=== PATIENT | female | born 1950 | race Caucasian/White ===

== ENCOUNTER 2020-10-01 10:53 | Outpatient (REF) | payer MEDICARE, SELFPAY ==
[2020-10-01 10:57] LABS: MANUAL DIFF FLAG NO
[2020-10-01 11:05] LABS: Basophils Percent Auto 0.6 % (0-2); Eosinophils Absolute Auto 0.2 X10*3/uL (0.0-0.4); Eosinophils Percent Auto 2.9 % (0-4); Hematocrit 40.1 % (37-47); Hemoglobin 12.9 g/dl (12.0-16.0); Imm Gran Abs Auto 0.01 X10*3/uL (0.00-0.03); Imm Gran Pct Auto 0.2 % (0.0-0.4); Mean Corpuscular HGB Conc 32.2 g/dl (31.0-35.0); Mean Corpuscular Hemoglobin 29.8 pg (27.0-33.0); Mean Corpuscular Volume 92.6 fL (80-98); Mean Platelet Volume 11.4 fL (9.4-12.3); Monocytes Absolute Auto 0.7 X10*3/uL (0.1-1.2); Neutrophils Absolute Auto 2.6 X10*3/uL (2.0-8.3); Neutrophils Percent Auto 47.3 % (45-73); Platelet Count 303 X10*3/uL (160-400); Red Blood Count 4.33 X10*6/uL (4.20-5.50); Red Cell Distribution Width 13.8 % (11.0-16.0); White Blood Count 5.4 X10*3/uL (4.8-10.8)
[2020-10-01 11:17] LABS: Alanine Aminotransferase 22 U/L (0-31); Alkaline Phosphatase 70 U/L (39-117); Anion Gap 11 (12-20); Aspartate Amino Transferase 24 U/L (5-31); Bilirubin Total 0.5 mg/dL (0.0-1.0); Blood Urea Nitrogen 8 mg/dL (9-16); Calcium 9.1 mg/dL (8.4-10.2); Carbon Dioxide 26 mmol/L (22-29); Chloride 104 mmol/L (96-108); Cholesterol 234 mg/dL; Estimated Glomerular Filt Rate > 60; Glucose Fasting 84 mg/dL (60-99); HDL Cholesterol 67 mg/dL; LDL Cholesterol Calculated 147 mg/dl; Potassium 4.2 mmol/L (3.3-5.1); Sodium 137 mmol/L (135-145); Total Protein 6.6 g/dL (6.5-8.0); Triglycerides 101 mg/dL
[2020-10-01 11:33] LABS: Glucose Urine UA NEG (NEG); Leukocyte Esterase Urine TRACE (NEG); Nitrite Urine NEG (NEG); Urine Blood NEG (NEG); Urine Ketones NEG (NEG); Urine Protein NEG (NEG-TRACE)
[2020-10-01 11:46] LABS: Appearance Urine CLEAR; Color Urine STRAW
[2020-10-01 12:04] LABS: RBC Urine 0 /HPF (0); Renal Epithelial Cells Urine TRACE /LPF; Squamous Epithelial Cell Urine TRACE /LPF; WBC Urine 0-2 /HPF (0-4)
== END 2020-10-01 10:54 | disposition home or self-care (01) ==
LOC: HO.LNP 10:53
PROVIDERS: Visit Provider Internal Medicine
DX: G35 Multiple sclerosis (principal); F34.1 Dysthymic disorder; M81.0 Age-related osteoporosis without current pathological fracture; I05.9 Rheumatic mitral valve disease, unspecified
CPT/HCPCS: 80053; 80061; 81001; 81003; 85025

== ENCOUNTER 2021-09-14 10:11 | Outpatient (REF) | payer MEDICARE, SELFPAY ==
--- NOTE | ~2021-09-14 | MR_ITS ---
MRI OF THE BRAIN WITHOUT IV CONTRAST INDICATION: Multiple sclerosis. White matter changes. COMPARISON: Brain MRI 11/24/2016. TECHNIQUE: Multiplanar multisequence MR imaging of the brain was obtained without IV contrast. FINDINGS: Stable appearing extensive T2 signal hyperintense lesional burden within the periventricular greater than subcortical white matter that remains most suggestive of the sequela of chronic demyelinating disease. There is global cerebral volume loss. Multiple chronic low T1 signal intensity lesions. There is no hydrocephalus, extra-axial surface collection, or herniation. The major flow voids at the skull base are preserved. There is no acute infarct on diffusion-weighted imaging. There is no intracranial hemorrhage on the gradient recalled echo acquisition. The midline structures are normal. The cerebellar tonsils are normally positioned. The cerebellum and brainstem are normal. The craniocervical junction is normal. Osseous marrow signal intensity is homogenous. The visualized soft tissues are unremarkable. MR/MR head/brain wo con IMPRESSION: Stable appearing extensive T2 signal hyperintense lesional burden within the periventricular greater than subcortical white matter that remains most suggestive of the sequela of chronic demyelinating disease. There is global cerebral volume loss.
== END 2021-09-14 10:12 | disposition home or self-care (01) ==
LOC: HO.MRI 10:11
PROVIDERS: Visit Provider Internal Medicine
DX: G35 Multiple sclerosis (principal); R90.82 White matter disease, unspecified
CPT/HCPCS: 70551

== ENCOUNTER 2021-10-06 11:09 | Outpatient (REF) | payer MEDICARE, SELFPAY ==
[2021-10-06 11:15] LABS: MANUAL DIFF FLAG NO
[2021-10-06 11:58] LABS: Basophils Percent Auto 0.5 % (0-2); Eosinophils Absolute Auto 0.2 X10*3/uL (0.0-0.4); Hematocrit 41.1 % (37.0-47.0); Hemoglobin 13.6 g/dl (12.0-16.0); Imm Gran Abs Auto 0.03 X10*3/uL (0.00-0.03); Imm Gran Pct Auto 0.5 % (0.0-0.4); Lymphocytes Absolute Auto 2.3 X10*3/uL (1.2-4.9); Lymphocytes Percent Auto 40.1 % (20-40); Mean Corpuscular HGB Conc 33.1 g/dl (31.0-35.0); Mean Corpuscular Hemoglobin 30.5 pg (27.0-33.0); Mean Corpuscular Volume 92.2 fL (80.0-98.0); Mean Platelet Volume 11.5 fL (9.4-12.3); Monocytes Absolute Auto 0.6 X10*3/uL (0.1-1.2); Monocytes Percent Auto 11.2 % (2-11); Neutrophils Absolute Auto 2.6 x10*3/uL (2.0-8.3); Neutrophils Percent Auto 44.7 % (45-73); Platelet Count 296 X10*3/uL (160-400); Red Blood Count 4.46 X10*6/uL (4.20-5.50); Red Cell Distribution Width 13.9 % (11.0-16.0); White Blood Count 5.7 X10*3/uL (4.8-10.8)
[2021-10-06 12:26] LABS: Appearance Urine Clear; Color Urine Yellow; Glucose Urine UA Negative (Negative); Leukocyte Esterase Urine Negative (Negative); Nitrite Urine Negative (Negative); PH 7.5 (5.0-8.0); Urine Blood Negative (Negative); Urine Ketones Negative (Negative); Urine Protein Negative (Neg-Trace)
[2021-10-06 12:27] LABS: Alanine Aminotransferase 17 U/L (0-31); Albumin Level 4.1 g/dL (3.5-5.0); Alkaline Phosphatase 69 U/L (39-117); Anion Gap 14 (12-20); Aspartate Amino Transferase 22 U/L (5-31); Bilirubin Total 0.3 mg/dL (0.0-1.0); Blood Urea Nitrogen 11 mg/dL (9-16); Carbon Dioxide 27 mmol/L (22-29); Chloride 103 mmol/L (96-108); Cholesterol 235 mg/dL; Estimated Glomerular Filt Rate > 60; Glucose Random 79 mg/dL (60-115); HDL Cholesterol 75 mg/dL; LDL Cholesterol Calculated 143 mg/dl; Potassium 4.4 mmol/L (3.3-5.1); Sodium 140 mmol/L (135-145); Total Protein 6.9 g/dL (6.5-8.0); Triglycerides 89 mg/dL
[2021-10-06 12:30] LABS: Bacteria Urine None Seen (None Seen); Hyaline Casts Urine 0-2 /LPF (0-2); RBC Urine 0-2 /HPF (0-2); Squamous Epithelial Cell Urine 0-2 /HPF (0-2); WBC Urine 0-5 /HPF (0-5)
== END 2021-10-06 11:10 | disposition home or self-care (01) ==
LOC: HO.LNP 11:09
PROVIDERS: Visit Provider Internal Medicine
DX: Z13.89 Encounter for screening for other disorder (principal)
CPT/HCPCS: 80053; 80061; 81001; 85025

== ENCOUNTER 2022-10-09 10:45 | Outpatient (REF) | payer MEDICARE, SELFPAY ==
[2022-10-09 10:49] LABS: MANUAL DIFF FLAG NO
[2022-10-09 10:54] LABS: Basophils Percent Auto 0.8 % (0-2); Eosinophils Absolute Auto 0.1 X10*3/uL (0.0-0.4); Eosinophils Percent Auto 2.6 % (0-4); Hematocrit 40.7 % (37.0-47.0); Hemoglobin 13.3 g/dl (12.0-16.0); Imm Gran Abs Auto 0.02 X10*3/uL (0.00-0.03); Imm Gran Pct Auto 0.4 % (0.0-0.4); Lymphocytes Absolute Auto 1.8 X10*3/uL (1.2-4.9); Lymphocytes Percent Auto 35.2 % (20-40); Mean Corpuscular HGB Conc 32.7 g/dl (31.0-35.0); Mean Corpuscular Hemoglobin 30.3 pg (27.0-33.0); Mean Corpuscular Volume 92.7 fL (80.0-98.0); Mean Platelet Volume 11.4 fL (9.4-12.3); Monocytes Absolute Auto 0.5 X10*3/uL (0.1-1.2); Monocytes Percent Auto 9.9 % (2-11); Neutrophils Absolute Auto 2.6 x10*3/uL (2.0-8.3); Neutrophils Percent Auto 51.1 % (45-73); Platelet Count 309 X10*3/uL (160-400); Red Blood Count 4.39 X10*6/uL (4.20-5.50); Red Cell Distribution Width 14.1 % (11.0-16.0); White Blood Count 5.1 X10*3/uL (4.8-10.8)
[2022-10-09 11:11] LABS: Alanine Aminotransferase 17 U/L (0-31); Alkaline Phosphatase 70 U/L (39-117); Anion Gap 12 (12-20); Aspartate Amino Transferase 22 U/L (5-31); Bilirubin Total 0.4 mg/dL (0.0-1.0); Blood Urea Nitrogen 9 mg/dL (9-16); Calcium 9.3 mg/dL (8.4-10.2); Carbon Dioxide 25 mmol/L (22-29); Chloride 105 mmol/L (96-108); Cholesterol 227 mg/dL (<200); Estimated Glomerular Filt Rate > 60; Glucose Fasting 82 mg/dL (60-99); HDL Cholesterol 74 mg/dL (>40); LDL Cholesterol Calculated 136 mg/dL (<100); Potassium 4.5 mmol/L (3.3-5.1); Sodium 137 mmol/L (135-145); Total Protein 6.8 g/dL (6.5-8.0); Triglycerides 89 mg/dL (<150)
== END 2022-10-09 10:46 | disposition home or self-care (01) ==
LOC: HO.LNP 10:45
PROVIDERS: Visit Provider Internal Medicine
DX: G35 Multiple sclerosis (principal)
CPT/HCPCS: 80053; 80061; 85025

== ENCOUNTER 2022-10-16 13:00 | Outpatient (REF) | payer MEDICARE, SELFPAY ==
[2022-10-16 15:49] LABS: Appearance Urine Clear; Color Urine Yellow; Glucose Urine UA Negative (Negative); Leukocyte Esterase Urine Negative (Negative); Nitrite Urine Negative (Negative); Urine Blood Negative (Negative); Urine Ketones Negative (Negative); Urine Protein Negative (Neg-Trace)
[2022-10-16 15:54] LABS: Bacteria Urine 2+ (None Seen); Hyaline Casts Urine 0-2 /LPF (0-2); RBC Urine 0-2 /HPF (0-2); Squamous Epithelial Cell Urine 0-2 /HPF (0-2); WBC Urine 0-5 /HPF (0-5)
== END 2022-10-16 13:01 | disposition home or self-care (01) ==
LOC: HO.LNP 13:00
PROVIDERS: Visit Provider Internal Medicine
DX: Z00.00 Encounter for general adult medical examination without abnormal findings (principal); M81.0 Age-related osteoporosis without current pathological fracture; I05.9 Rheumatic mitral valve disease, unspecified
CPT/HCPCS: 81001

== ENCOUNTER 2022-11-02 13:29 | Outpatient (AMB) | payer MEDICARE, SELFPAY ==
--- NOTE | 2022-11-02 13:32 | A.OFFVIS_ITS ---
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 She does not have any known cardiac issues. No history of any coronary artery disease or myocardial infarction or cardiomyopathy or in fact any other cardiac concerns the past. She states that randomly she may feel short of breath. She describes for example, a random sensation of having to take a deep breath while eating extra. However, when I questioned her about exertion shortness of breath, she does not seem to have much of those symptoms. Any case, because of underlying multiple sclerosis she does not do much at baseline either. She states she c annot walk too much because of this. Otherwise, no clear anginal-type chest pains. Blood pressure is slightly high today but she states that might be from white coat and generally slower than that. Not diabetic. Nonsmoker. [facility] Medical History (Updated 11/02/22 @ 13:59 by Amaury Lopez MD) Multiple sclerosis Surgical History (Updated 11/02/22 @ 13:40 by Rebekah Castillo) Hx of tonsillectomy Family History (Updated 11/02/22 @ 13:41 by Rebekah Castillo) Mother CHF (congestive heart failure) Father No problems noted. Social History (Updated 11/02/22 @ 13:41 by Rebekah Castillo) Alcohol intake: never Patient Tobacco Use Status: Never used Tobacco Review of Systems Const Denies weakness Eyes Denies loss of vision ENT Denies dizziness Card Denies chest pain, Denies chest pain with activity, Denies syncope, Denies rapid heart rate, Denies pedal edema, Denies edema, Denies leg edema, Denies lightheadedness, Denies palpitations, Denies dyspnea, Denies dyspnea on exertion and Denies orthopnea Resp Denies cough, Denies dyspnea, Denies dyspnea on exertion and Denies wheezing GI Denies hematochezia and Denies change in stool character Denies hematuria, Denies urinary frequency and Denies dysuria Musc Denies abnormal gait, Denies muscle cramps, Denies muscle weakness, Denies numbness, Denies radiating pain into limb and Denies tingling Skin/Breast Denies nail changes and Denies rash Neuro Denies Abnormal speech present, Denies abnormal gait, Denies dizziness, Denies syncope, Denies loss of vision, Denies memory loss, Denies numbness, Denies tingling and Denies weakness Psych Denies depression and Denies memory loss Endo Denies palpitations Aller/Immun Denies wheezing Physical Exam Vital Signs: Last Vital Signs Pulse 88 11/02/22 13:35 BP 144/60 H 11/02/22 13:35 BMI result Body Mass Index 28.7 Const General: comfortable and no acute distress Orientation/consciousness: patient oriented x3 HEENT Other: Unremarkable Head: Yes normal to inspection Neck Neck: Yes normal visual inspection Chest Chest palpation & inspection: normal inspection of the chest Resp Auscultation: clear to auscultation bilaterally Cardio Palpation: normal PMI Heart sounds: S1 normal heart sound present, S2 normal heart sound present, no gallops, no murmurs and no rubs GI Palpation (GI): Soft to palpation Back/Spine/Pelvis Other: unremarkable Skin General skin exam: no rashes or lesions noted Neuro General: patient oriented x3 Speech: No Abnormal speech present Extrem General: Yes normal to inspection Psych Mental Status: mental status grossly normal Office Procedures EKG Details: EKG with sinus rhythm at 88/Min; possible left atrial enlargement; nonspecific ST-T changes, somewhat diffusely. [id number], Complete Assessment & Plan Assessment & Plan (1) SOB (shortness of breath): Code(s): R06.02 - Shortness of breath (2) Abnormal EKG: Code(s): R94.31 - Abnormal electrocardiogram [ECG] [EKG] Plan Symptoms are somewhat atypical for cardiac disease. EKG however has some diffuse nonspecific ST-T changes. We will start with an echocardiogram and stress test. Highly unlikely to exercise on the treadmill and hence we can do a pharmacological stress test with Lexiscan. Once these are completed and reviewed, can do follow-up. Blood pressure is slightly high but she states generally slower than that. We need to follow-up on future readings. Discussed with who came for appointment. Orders: Orders CA lexiscan stress w alex Today R06.02 - Shortness of breath NM cardiolite stress test Today R06.02 - Shortness of breath CA echo transthoracic complete Today I25.10 - Atherosclerotic heart disease of [place] coronary artery without angina pectoris, R06.02 - Shortness of breath Coding Level of Care Code New Pt Level 4 (27053) Diagnoses SOB (shortness of breath) R06.02 Abnormal EKG R94.31 CPT Codes EKG - CPT: 07112-[id number], Complete ([id number])
[2022-11-02 13:35] VITALS: BP 144/60; PULSE 88; BMI 28.7
== END 2022-11-02 13:54 | disposition home or self-care (01) ==
PROVIDERS: PCP Internal Medicine; Referring Provider Internal Medicine; Visit Provider Internal Medicine
DX: R06.02 Shortness of breath (principal); R94.31 Abnormal electrocardiogram [ECG] [EKG]
CPT/HCPCS: 93010; 99204

== ENCOUNTER → 2022-11-02 13:29 | Outpatient (BNVA) | payer MEDICARE, SELFPAY | PROVIDERS: PCP Internal Medicine; Referring Provider Internal Medicine; Visit Provider Internal Medicine | DX: R06.02 Shortness of breath (principal); R94.31 Abnormal electrocardiogram [ECG] [EKG] | CPT/HCPCS: 93005; 99202 ==

== ENCOUNTER → 2022-11-06 11:01 | Outpatient (REF) | payer MEDICARE, SELFPAY ==
--- NOTE | 2022-11-06 11:09 | HM_ITS ---
* Total procedure length 30 days. Wear time 19.5 days. * Underlying rhythm is sinus. Average ventricular rate 82/Min. Range 58 to 156/Min. * No evidence of atrial fibrillation. * Very rare supraventricular ectopy. * Shortness of breath, palpitations, racing/fast heartbeat, correlates with sinus rhythm, mild sinus tachycardia. MTDD
== END ==
LOC: HO.CARD 11:01
PROVIDERS: PCP Internal Medicine; Visit Provider Internal Medicine
DX: R00.2 Palpitations (principal)
CPT/HCPCS: 93270

== ENCOUNTER 2023-10-12 10:42 | Outpatient (REF) | payer MEDICARE, SELFPAY ==
[2023-10-12 10:46] LABS: MANUAL DIFF FLAG NO
[2023-10-12 11:26] LABS: Appearance Urine Clear; Basophils Absolute Auto 0.1 X10*3/uL (0.0-0.2); Basophils Percent Auto 0.9 % (0-2); Color Urine Yellow; Eosinophils Absolute Auto 0.2 X10*3/uL (0.0-0.4); Eosinophils Percent Auto 3.2 % (0-4); Glucose Urine UA Negative (Negative); Hematocrit 39.8 % (37.0-47.0); Hemoglobin 13.3 g/dl (12.0-16.0); Imm Gran Abs Auto 0.02 X10*3/uL (0.00-0.03); Imm Gran Pct Auto 0.4 % (0.0-0.4); Leukocyte Esterase Urine Trace (Negative); Lymphocytes Percent Auto 35.9 % (20-40); Mean Corpuscular HGB Conc 33.4 g/dl (31.0-35.0); Mean Corpuscular Hemoglobin 30.4 pg (27.0-33.0); Mean Corpuscular Volume 90.9 fL (80.0-98.0); Mean Platelet Volume 11.2 fL (9.4-12.3); Monocytes Absolute Auto 0.6 X10*3/uL (0.1-1.2); Monocytes Percent Auto 11.4 % (2-11); Neutrophils Absolute Auto 2.7 x10*3/uL (2.0-8.3); Neutrophils Percent Auto 48.2 % (45-73); Nitrite Urine Negative (Negative); Platelet Count 307 X10*3/uL (160-400); Red Blood Count 4.38 X10*6/uL (4.20-5.50); Red Cell Distribution Width 14.7 % (11.0-16.0); Specific Gravity - Urine 1.015 (1.005-1.025); UMIC TRIGGER UACC YES; Urine Blood Negative (Negative); Urine Ketones Negative (Negative); Urine Protein Negative (Neg-Trace); White Blood Count 5.6 X10*3/uL (4.8-10.8)
[2023-10-12 11:28] LABS: Bacteria Urine None Seen (None Seen); Hyaline Casts Urine 0-2 /LPF (0-2); RBC Urine 0-2 /HPF (0-2); Squamous Epithelial Cell Urine 0-2 /HPF (0-2); WBC Urine 0-5 /HPF (0-5)
[2023-10-12 11:43] LABS: Alanine Aminotransferase 18 U/L (0-31); Albumin Level 3.9 g/dL (3.5-5.0); Alkaline Phosphatase 73 U/L (39-117); Anion Gap 12 (12-20); Aspartate Amino Transferase 22 U/L (5-31); Bilirubin Total 0.5 mg/dL (0.0-1.0); Blood Urea Nitrogen 8 mg/dL (9-16); Calcium 9.4 mg/dL (8.4-10.2); Carbon Dioxide 27 mmol/L (22-29); Chloride 105 mmol/L (96-108); Cholesterol 237 mg/dL (<200); Estimated Glomerular Filt Rate > 60; Glucose Fasting 81 mg/dL (60-99); HDL Cholesterol 72 mg/dL (>40); LDL Cholesterol Calculated 147 mg/dL (<100); Potassium 4.3 mmol/L (3.3-5.1); Sodium 140 mmol/L (135-145); Total Protein 6.7 g/dL (6.5-8.0); Triglycerides 91 mg/dL (<150)
== END 2023-10-12 10:43 | disposition home or self-care (01) ==
LOC: HO.LNP 10:42
PROVIDERS: Visit Provider Internal Medicine
DX: G35 Multiple sclerosis (principal)
CPT/HCPCS: 80053; 80061; 81001; 85025

== ENCOUNTER 2024-04-23 11:22 | Outpatient (REF) | payer MEDICARE, SELFPAY ==
--- NOTE | ~2024-04-23 | MR_ITS ---
EXAMINATION: MR BRAIN WITHOUT CONTRAST CLINICAL INFORMATION: Multiple sclerosis. COMPARISON: September 14, 2021. TECHNIQUE: MRI of the brain was obtained using routine sequences without contrast. FINDINGS: There are multifocal, irregular shaped, perpendicularly oriented to the corpus callosum, different sizes, hypointense T1 hyperintense T2 FLAIR nonprotected effusion deep periventricular white matter signal abnormality involving mostly centrum semiovale and ann radiata, the largest in the right parietal and left frontal region. The majority of these lesions demonstrated a black hole pattern . There are few hyperintense T2 FLAIR signal in the left midbrain. No acute intracranial hemorrhage, mass effect, midline shift, hydrocephalus or herniation. Prominence of the extra-axial CSF spaces cerebral sulci and ventricles. Flow-void signal within the main vessels is normal. Sellar/suprasellar region demonstrated no gross signal abnormality. Craniocervical junction is intact and normal. There is volume loss of the corpus callosum. MR/MR head/brain wo con IMPRESSION: Severe demyelinating plaques involving mostly the supratentorial compartment. Global cerebral atrophy. No acute stroke/nonhemorrhagic ischemia. Electronically signed by: J Luis Murillo MD 04/25/2024 11:58 AM EST
--- OUTSIDE RECORDS SUMMARY | 2024-04-23 13:49 | XMS_ITS | Patient Health Record ---
Author Organization Storm Gonzalez MD Address [address] [place], [place] [phone] Care Team Providers Care Counseling Program Leader Name Role Phone Storm Gonzalez Primary Care Provider Allergies No Known Allergies Results Component Value Reference Range Notes Complete Blood Count Auto Di ff Reviewed date:10/12/2023 12:13:43 PM Interpretation: Performing Lab:[facility], [address] [place] [phone] Notes/Report: White Blood Count 5.6 4.8-10.8 X10*3/uL Red Blood Count 4.38 4.20-5.50 X10*6/uL Hemoglobin 13.3 12.0-16.0 g/dl Hematocrit 39.8 37.0-47.0 % Mean Corpuscular Volume 90.9 80.0-98.0 fL Mean Corpuscular Hemoglobin 30.4 27.0-33.0 pg Mean Corpuscular HGB Conc 33.4 31.0-35.0 g/dl Red Cell Distribution Width 14.7 11.0-16.0 % Platelet Count 307 160-400 X10*3/uL Mean Platelet Volume 11.2 9.4-12.3 fL Neutrophils Percent Auto 48.2 45-73 % Imm Gran Pct Auto 0.4 0.0-0.4 % Lymphocytes Percent Auto 35.9 20-40 % Monocytes Percent Auto 11.4 2-11 % Eosinophils Percent Auto 3.2 0-4 % Basophils Percent Auto 0.9 0-2 % NRBC Pct Auto 0.0 0.0-0.2 /100WBC Neutrophils Absolute Auto 2.7 2.0-8.3 x10*3/u L Imm Gran Abs Auto 0.02 0.00-0.03 X10*3/uL Lymphocytes Absolute Auto 2.0 1.2-4.9 X10*3/u L Monocytes Absolute Auto 0.6 0.1-1.2 X10*3/uL Eosinophils Absolute Auto 0.2 0.0-0.4 X10*3/u L Basophils Absolute Auto 0.1 0.0-0.2 X10*3/uL NRBC Abs Auto 0.000 0.0-0.012 X10*3/uL Comprehensive [place]. Panel Fa st Reviewed date:10/12/2023 12:38:01 PM Interpretation: Performing Lab:[address] [phone] Notes/Report: Sodium 140 135-145 mmol/L Potassium 4.3 3.3-5.1 mmol/L Chloride 105 96-108 mmol/L Carbon Dioxide 27 22-29 mmol/L Anion Gap 12 12-20 Blood Urea Nitrogen 8 9-16 mg/dL Creatinine 0.72 0.5-1.4 mg/dL Estimated Glomerular Filt Rate > 60 NOTE: For -[place]aur[place] individuals, multiply the result by 1.210. Chronic Kidney Disease: Estimated GFR < 60 mL/min/1.73m2 Severe Kidney Disease: Estimated GFR < 15 mL/min/1.73m2 Glucose Fasting 81 60-99 mg/dL Calcium 9.4 8.4-10.2 mg/dL Bilirubin Total 0.5 0.0-1.0 mg/dL Aspartate Amino Transferase 22 5-31 U/L Alanine Aminotransferase 18 0-31 U/L Total Protein 6.7 6.5-8.0 g/dL Albumin Level 3.9 3.5-5.0 g/dL Alkaline Phosphatase 73 39-117 U/L Lipid Panel Reviewed date:10/12/2023 12:10:00 PM Interpretation: Performing Lab:[address] [phone] Notes/Report: Triglycerides 91 <150 mg/dL Desirable Triglyceride: less than 150 mg/dL Borderline High Triglyceride 150-199 mg/dL High Triglyceride: 200-499 mg/dL Very High Triglyceride: greater than or equal to 5OO mg/dL Cholesterol 237 <200 mg/dL Desirable Cholesterol: less than 200 mg/dL Borderline High Cholesterol: 200-239 mg/dL High Cholesterol: greater than 239 mg/dL LDL Cholesterol Calculated 147 <100 mg/dL Desirable LDL: less than 100 mg/dL Near Optimal/Above Optimal LDL: 110-129 mg/dL Borderline High LDL: 130-159 mg/dL High LDL: 160-189 mg/dL Very High LDL: greater than or equal to 190 mg/dL HDL Cholesterol 72 >40 mg/dL Desirable HDL: greater than 40 mg/dL Note: This HDL assay may give artificially low results in patients with liver disease. UA ClnCatch+Micro w/rflx Cul t Reviewed date:10/12/2023 12:37:44 PM Interpretation: Performing Lab:[facility], [address] [place] [phone] Notes/Report: Urine, Clean Catch Color Urine Yellow Appearance Urine Clear PH 7.0 5.0-9.0 Glucose Urine UA Negative Negative mg/dL Urine Blood Negative Negative Specific [place] - Urine 1.015 1.005-1.025 Urine Protein Negative Neg-Trace mg/dL Urine Ketones Negative Negative mg/dL Nitrite Urine Negative Negative Leukocyte Esterase Urine Trace Negative RBC Urine 0-2 0-2 /HPF WBC Urine 0-5 0-5 /HPF Squamous Epithelial Cell Urine 0-2 0-2 /HPF Bacteria Urine None Seen None Seen Hyaline Casts Urine 0-2 0-2 /LPF Reason For Referral No Information Medications Medication SIG (Take, Route, Frequency, Duration) [...] 4 HOURS NEEDED FOR 30 DAYS Active Immunizations Vaccine Route Administration Date Status Comme nts Flu Vaccine Unknown 10/03/2010 Administered Tetanus Unknown 02/14/2007 Administered Flu Vaccine IM Intramuscular 11/30/2011 Administered Flu Vaccine IM Intramuscular 12/03/2012 Administered Flu Vaccine IM Intramuscular 12/22/2013 Administered Fluarix Quadrivalent IM Intramuscular 12/08/2014 Administe red Shingles IM Intramuscular 03/11/2015 Administered Fluarix Quadrivalent IM Intramuscular 12/30/2015 Administe red PPSV23 (Pnemovax) IM Intramuscular 07/06/2016 Administered Fluarix Quadrivalent IM Intramuscular 10/30/2016 Administe red Prevnar 13 IM Intramuscular 07/12/2017 Administered Influenza High Dose IM Intramuscular 12/14/2017 Administer ed Influenza High Dose IM Intramuscular 12/19/2018 Administer ed Influenza High Dose IM Intramuscular 10/31/2019 Administer ed SARS-COV-2 Pfizer Unknown 04/20/2020 Administered SARS-COV-2 Pfizer Unknown 05/16/2020 Administered Influenza High Dose IM Intramuscular 12/16/2020 Administer ed SARS-COV-2 Pfizer Unknown 11/25/2020 Administered Fluarix Quadrivalent Unknown 12/02/2021 Administered Influenza High Dose IM Intramuscular 10/27/2022 Administer ed SARS-COV-2 Pfizer Unknown 11/17/2022 Administered SARS-COV-2 Pfizer Unknown 11/03/20[address] [facility] [facility] Influenza High Dose Unknown 11/03/2023 [facility] Social History Tobacco Use: Social History Observation Description Date Details (start date - stop date) Never Smoker NA - NA Tobacco Use/Smoking Question Answer Notes Patient is a nonsmoker Additional Findings: Tobacco Non-User Cu rrent non-smoker, currently using no form of tobacco Alcohol Screen Question Answer Notes Did you have a drink containing alcohol in the p ast year? 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) Active confirmed Problem 48919688 Osteoporosis (M81.0) Active confirmed Problem 77451169 Dysthymia (F34.1) Active confirmed Problem 035584566 Ankle arthritis (M19.079) Active confirmed Problem 401274434 Mild intermitten t asthmatic bronchitis with acute exacerbation (J45.21) Active confirmed Problem 352902546 Family history o f MS (multiple sclerosis) (Z82.0) Active confirmed Problem 044155032 Multiple sclerosis, primary progressive (G35) Active confirmed Vital Signs Blood pressure diastolic 58 mm Hg 04/15/2024 Height 63 in 04/15/2024 Blood pressure systolic 124 mm Hg 04/15/2024 Weight 154 lbs 04/15/2024 BMI 27.28 kg/m2 04/15/2024 Encounters Encounter Location Date Provider Diagnosis Storm Gonzalez MD [address] [place], [place] [phone] 10/12/2023 Storm Gonzalez Multiple sclerosis, primary progressive G35 Storm Gonzalez MD [address] [place] [phone] 10/18/2023 Storm Gonzalez Multiple sclerosis, primary progressive G35 ; Palpitation R00.2 ; Mild intermittent asthmatic bronchitis with acute exacerbation J45.21 and Family history of MS (multiple sclerosis) Z82.0 Storm Gonzalez MD [address] [place] [phone] 04/15/2024 Storm Gonzalez Multiple sclerosis, primary progressive G35 Assessments Encounter Date Diagnosis (ICD Code) Assessment Notes Treatment Notes Treatment Clinical Notes Section Notes 10/12/2023 Multiple sclerosis, primary progressive (ICD-10 - G35) 10/18/2023 Multiple sclerosis, primary progressive (ICD-10 - G35) still not wanting to take any meds 10/18/2023 Palpitation (ICD-10 - R00.2) had holter that was negative 04/15/2024 Multiple sclerosis, primary progressive (ICD-10 - G35) ms is doing okay. is going to get repeat mri in april. feels that she is pretty much the same. 10/18/2023 Mild intermittent asthmatic bronchitis with acute exacerbation (ICD-10 - J45.21) to use inhaler if necessary 10/18/2023 Family history of MS (multiple sclerosis) (ICD-10 - Z82.0) will cntinue to monitor Plan Of Treatment Pending Test Test Name Order Date Electrocardiogram (EKG) 07/12/2017 Electrocardiogram (EKG) 06/22/2015 Electrocardiogram (EKG) 07/19/2018 Electrocardiogram (EKG) 07/06/2016 BUN 11/21/2016 CREATININE 11/21/2016 BONE DENSITY DEXA 10/08/2020 ECG 30 day event monitor 06/29/2022 FL barium swallow modified 10/16/2022 Future Test Test Name Order Date BONE DENSITY DEXA 01/26/2020 MAMMOGRAM DIGITAL BILATERAL SCREEN 01/25 Next Appt Details Provider Name:Storm long, 10/14/2024 07:45:00 AM, [address], [address], [place], [place], [phone], Provider Name:Storm johnsonr, 10/21/2024 02:30:00 PM, [address], [address], [place], [place], [phone], Insurance Providers Payer Name Payer Address Payer Phone Subscriber Number Group Number Insured Name Patient Relationship to Insured Coverage Start Date Coverage End Date [employer] [address] [place] [address] [id number] Dana Murphy Self - patient is the insured [facility] AND [facility] [address] [place], [place] [id number] Jeffrey Dana Self - patient is the insured Medical (General) History Medical History History ICD Code colonoscopy 2007 due in 10; colonoscopy done by w/Dr. Davis on 01/18/18 - no further testing indicated per Dr. Davis discussed the need for the n ew shingrix is going to wait for the new covd vaccine
--- OUTSIDE RECORDS SUMMARY | 2024-04-23 13:50 | XMS_ITS ---
Author Organization Storm Gonzalez MD Address [address] [place] [phone] Care Team Providers Care Painter Tumbling Barrel Name Role Phone Storm Gonzalez Primary Care Provider Allergies No Known Allergies REASON FOR VISIT review labs Medications Medication SIG (Take, Route, Frequency, Duration) Notes Start Date End Date Status FLUoxetine HCl 20 MG take 1 capsule by m outh every day in the morning Orally Once a day for 90 days Active Ventolin HFA 108 (90 Base) MCG/ACT INHALE 1 PUFF INTO THE LUNGS EVERY 4 HOURS NEEDED FOR 30 DAYS Active Ibuprofen 800 MG 1 tablet with food o r milk Orally Two times a day for 30 days 10/30/2016 Not-Taking Social History Tobacco Use: Social History Observation [...] ast year? No Points 0 Interpretation Negative Vital Signs Blood pressure systolic 132 mm Hg 10/18/19 24 Blood pressure diastolic 54 mm Hg 024 Height 63 in 10/18/2023 Weight 153 lbs 10/18/2023 BMI 27.10 kg/m2 10/18/2023 Encounters Encounter Location Date Provider Diagnosis Storm Gonzalez MD [address] [place] [phone] 10/18/2023 Storm Gonzalez Multiple sclerosis, primary progressive G35 ; Palpitation R00.2 ; Mild intermittent asthmatic bronchitis with acute exacerbation J45.21 and Family history of MS (multiple sclerosis) Z82.0 Assessments Encounter Date Diagnosis (ICD Code) Assessment Notes Treatment Notes Treatment Clinical Notes Section Notes 10/18/2023 Multiple sclerosis, primary progressive (ICD-10 - G35) still not wanting to take any meds 10/18/2023 Palpitation (ICD-10 - R00.2) had holter that was negative 10/18/2023 Mild intermittent asthmatic bronchitis with acute exacerbation (ICD-10 - J45.21) to use inhaler if necessary 10/18/2023 Family history of MS (multiple sclerosis) (ICD-10 - Z82.0) will cntinue to monitor Plan Of Treatment Medication Medication Name Sig Start Date Stop Date Notes Ventolin HFA 108 (90 Base) MCG/ACT INHALE 1 PUFF INTO THE LUNGS EVERY 4 HOURS NEEDED FOR 30 DAYS Treatment Notes Assessment Notes Multiple sclerosis, primary progressive still not wanting to take any meds Palpitation had holter that was negative Mild intermittent asthmatic bronchitis with acute exacerbation to use inhaler if necessary Family history of MS (multiple sclerosis ) will cntinue to monitor Next Appt Details Follow Up: 6 Months, Reason: Provider Name:Storm long, 10/14/2024 07:45:00 AM, [address] [place] [address], [address] [place] [address], [phone], Provider Name:Storm long, 10/21/2024 02:30:00 PM, [address] [place] [address], [address] [place] [address], [phone], Progress Notes * Dana MURPHY ADOB: 0 (73 yo F)Acc No.[id number]:10/18/2023 Patient:?Dana Murphy A Provider:?Storm Gonzalez MD :1950???Age:73 Y???Sex:Female D ate:10/18/2023 Address:[address] [place], [place] [id number] Subjective: * Chief Complaints: * ???Review labs * HPI: ???Depression Screening:?PHQ-9?Little interest or pleasure in doing things?Several days,?Feeling down, depressed, or hopeless?Several days,?Trouble falling or staying asleep, or sleeping too much?Several days,?Feeling tired or having little energy?Several days,?Poor appetite or overeating?Not at all,?Feeling bad about yourself or that you are a failure, or have let yourself or your family down?Not at all,?Trouble concentrating on things, such as reading the newspaper or watching television?Not at all,?Moving or speaking so slowly that other people could have noticed; or the opposite, being so fidgety or restless that you have been moving around a lot more than usual?Not at all,?Thoughts that you would be better off or of hurting yourself in some way?Not at all,?Total Score?4,?Interpretation?Minimal Depression.?Interpretation and Intervention?Depression Screening Findings?Negative,?Follow-Up for Depression?: review of PHQ-9 found negative result, no follow-up needed.?Communication Needs:?Communication Needs?Does the patient have a hearing impairment?No,?Does the patient have a vision impairment??Yes,?If yes, what is the vision impairment??Glasses,?Does the patient have a cognition impairment??No.?Fall Risk:?History?Have you had any falls with injury in the past year??No,?Have you had two or more falls in the past year??No.?SDOH Questions:?SDOH Questions?In the past year have you or any family members you live with been unable to get any of the following when it was really needed? Check all that apply:?None.?Symptom(s):? patient is a 73 yo female here for visit with review of recent labs and follow up of chronic issues. * ROS:?General/Constitutional:?Patient denies?chills , fatigue , fever , headache.?ENT:?Patient denies?decreased sense of smell , any loss of taste , sore throat.?Respiratory:?Patient denies?shortness of breath with exertion shortness of breath at rest.?Cardiovascular:?Patient denies?chest pain at rest chest pain with exertion.?Genitourinary:?Patient denies?difficulty urinating.?Musculoskeletal:?Patient denies?muscle aches.?Peripheral Vascular:?Patient denies?red and blue toes.? * Medical History:? * Surgical History:? * Hospitalization/Major Diagno stic Procedure:? * Family History:?Father: dece ased 90 yrs.?Mother: 76 yrs.?1 brother(s) , 2 sister(s) . 1 daughter(s) . .? Mother-MS Father-Organ Failure, Denies mental health/substance abuse family history, Denies mental health/substance abuse family history, No pertinent family medical history, No pertinent family medical history, Denies mental health/substance abuse family history. * Social History:?Tobacco Use:?Tobacco Use/Smoking?Patient is a?nonsmoker,?Additional Findings: Tobacco Non-User?Current non-smoker, currently using no form of tobacco.?Drugs/Alcohol:?Alcohol Screen?Did you have a drink containing alcohol in the past year??No,?Points?0,?Interpretation?Negative.?Miscellaneous:?Caffeine: yes, frequency:, 1-2 cups per day. Children: yes. no Community involvements. no Exercise, not really doing much since the MS diagnosis. Home smoke detector use: yes. Housing: owning. Living with: spouse. Marital status: . Occupation: Retired. Pets: none. no Travel outside of the [place]. * Medications:?TakingFLUoxetin e HCl 20 MG Capsule take 1 capsule by mouth every day in the morning Orally Once a dayVentolin HFA 108 (90 Base) MCG/ACT Aerosol Solution INHALE 1 PUFF INTO THE LUNGS EVERY 4 HOURS NEEDED FOR 30 DAYS Taking FLUoxetine HCl 20 MG Capsule take 1 capsule by mouth every day in the morning Orally Once a dayTaking Ventolin HFA 108 (90 Base) MCG/ACT Aerosol Solution INHALE 1 PUFF INTO THE LUNGS EVERY 4 HOURS NEEDED FOR 30 DAYS Not-Taking/PRNIbuprofen 800 MG Tablet 1 tablet with food or milk Orally Two times a dayMedication List reviewed and reconciled with the patientNot-Taking/PRN Ibuprofen 800 MG Tablet 1 tablet with food or milk Orally Two times a dayMedication List reviewed and reconciled with the patient * Allergies:?N.K.D.A.yes[Aller gies Verified] Objective: * Vitals:?Ht: 63, Wt:153, BMI: 27.10, BP:132/54. * ???Past Orders: ???Lab:Complete Blood Count Auto Diff (Order Date - 10/12/2023) (Collection Date - 10/12/2023) ? Value Reference Range ?White Blood Count 5.6 4. 8-10.8 - X10*3/uL ?Red Blood Count 4.38 4.20 -5.50 - X10*6/uL ?Hemoglobin 13.3 12.0-16.0 - g/dl ?Hematocrit 39.8 37.0-47.0 - % ?Mean Corpuscular Volume 90.9 80.0-98.0 - fL ?Mean Corpuscular Hemoglobin 30.4 27.0-33.0 - pg ?Mean Corpuscular HGB Conc 33.4 31.0-35.0 - g/dl ?Red Cell Distribution Width 14.7 11.0-16.0 - % ?Platelet Count 307 160-4 00 - X10*3/uL ?Mean Platelet Volume 11.2 9.4-12.3 - fL ?Neutrophils Percent Auto 48.2 45-73 - % ?Imm Gran Pct Auto 0.4 0. 0-0.4 - % ?Lymphocytes Percent Auto 35.9 20-40 - % ?Monocytes Percent Auto 11.4 H 2-11 - % ?Eosinophils Percent Auto 3.2 0-4 - % ?Basophils Percent Auto 0.9 0-2 - % ?NRBC Pct Auto 0.0 0.0-0. 2 - /100WBC ?Neutrophils Absolute Auto 2.7 2.0-8.3 - x10*3/uL ?Imm Gran Abs Auto 0.02 0. 00-0.03 - X10*3/uL ?Lymphocytes Absolute Auto 2.0 1.2-4.9 - X10*3/uL ?Monocytes Absolute Auto 0.6 0.1-1.2 - X10*3/uL ?Eosinophils Absolute Auto 0.2 0.0-0.4 - X10*3/uL ?Basophils Absolute Auto 0.1 0.0-0.2 - X10*3/uL ?NRBC Abs Auto 0.000 0.0-0. 012 - X10*3/uL ???Lab:Comprehensive [place]. P issac Fast (Order Date - 10/12/2023) (Collection Date - 10/12/2023) ? Value Reference Range ?Sodium 140 135-145 - mmo l/L ?Bilirubin Total 0.5 0.0- 1.0 - mg/dL ?Aspartate Amino Transferase 22 5-31 - U/L ?Alanine Aminotransferase 18 0-31 - U/L ?Total Protein 6.7 6.5-8. 0 - g/dL ?Albumin Level 3.9 3.5-5. 0 - g/dL ?Alkaline Phosphatase 73 39-117 - U/L ?Potassium 4.3 3.3-5.1 - mmol/L ?Chloride 105 96-108 - mm ol/L ?Carbon Dioxide 27 22-29 - mmol/L ?Anion Gap 12 12-20 - ?Blood Urea Nitrogen 8 L 9-16 - mg/dL ?Creatinine 0.72 0.5-1.4 - mg/dL ?Estimated Glomerular Filt Rate > 60 - ?Glucose Fasting 81 60-9 9 - mg/dL ?Calcium 9.4 8.4-10.2 - m g/dL ???Lab:Lipid Panel (Order Da te - 10/12/2023) (Collection Date - 10/12/2023) ? Value Reference Range ?Triglycerides 91 <150 - mg/dL ?Cholesterol 237 H <200 - m g/dL ?LDL Cholesterol Calculated 147 H <100 - mg/dL ?HDL Cholesterol 72 >40 - mg/dL ???Lab:UA ClnCatch+Micro w/r flx Cult (Order Date - 10/12/2023) (Collection Date - 10/12/2023) ? Value Reference Range ?Color Urine Yellow - ?Appearance Urine Clear - ?PH 7.0 5.0-9.0 - ?Glucose Urine UA Negative Neg ative - mg/dL ?Urine Blood Negative Negative - ?Specific [place] - Urine 1.015 1.005-1.025 - ?Urine Protein Negative Neg-Tr erika - mg/dL ?Urine Ketones Negative Negati ve - mg/dL ?Nitrite Urine Negative Negati ve - ?Leukocyte Esterase Urine Trace A Negative - ?RBC Urine 0-2 0-2 - /HPF ?WBC Urine 0-5 0-5 - /HPF ?Squamous Epithelial Cell Urine 0-2 0-2 - /HPF ?Bacteria Urine None Seen None Seen - ?Hyaline Casts Urine 0-2 0-2 - /LPF * Examination: ???General Examination: ?GENERAL APPEARANCE:? alert, well hydrated, in no distress , female.?HEAD:? normocephalic.?EYES:? BOTH EYES, normal.?EARS:? BOTH EARS, normal.?THROAT:? no erythema, no exudate, pharynx normal.?NECK/THYROID:? no carotid bruit.?LYMPH NODES:? no cervical adenopathy.?SKIN:? good turgor.?HEART:? regular rate and rhythm, no murmurs, rubs, gallops.?LUNGS:? no wheezes, rales, rhonchi, good air movement, clear to auscultation bilaterally.?BREASTS:? no masses palpable bilaterally.?ABDOMEN:? no hepatosplenomegaly, soft, nontender, nondistended.?RECTAL EXAM:? stool guaiac negative, no masses palpable.?FEMALE GENITOURINARY:? non-palpable ovaries.?EXTREMITIES:? no edema.? Assessment: * Assessment: 1.?Multiple sclerosis, prima ry progressive - G35 (Primary)?2.?Palpitation - R00.2?3.?Mild intermittent asthmatic bronchitis with acute exacerbation - J45.21?4.?Family history of MS (multiple sclerosis) - Z82.0? Plan: * Treatment: 2.?Palpitation? Notes: had holter that was negative.?? 3.?Mild intermittent asthmat ic bronchitis with acute exacerbation? Continue Ventolin HFA Aerosol Solution, 108 (90 Base) MCG/ACT, INHALE 1 PUFF INTO THE LUNGS EVERY 4 HOURS NEEDED FOR 30 DAYS.?? Notes: to use inhaler if necessary.?? 4.?Family history of MS (mul tiple sclerosis)? Notes: will cntinue to monitor.?? * Procedure Codes:? * Preventive Medicine:? ??Counseling:?Care goal follow-up plan:?Counseling for abnormal BMI provided?Yes,?Above Normal BMI Follow-up?Giving encouragement to exercise.? * Follow Up:?6 Months * * Sign off status: Completed true * Provider:?Storm Gonzalez MD Date:?0 10/18/2023 Generated for Nelson moura/Dane/Grabiel on:?04/23/2024 01:49 PM EST History and Physical Notes * HPI (History of Present Illness) Category Sub-Category Detail Notes Category Not es Symptom(s) patient is a 73 yo female here for visit with review of recent labs and follow up of chronic issues. Depression Screening PHQ-9 Little inte rest or pleasure in doing things: Several days Feeling down, depressed, or hopeless: Se veral days Trouble falling or staying asleep, or sl eeping too much: Several days Feeling tired or having little energy: S everal days Poor appetite or overeating: Not at all Feeling bad about yourself o r that you are a failure, or have let yourself or your family down: Not at all Trouble concentrating on thi ngs, such as reading the newspaper or watching television: Not at all Moving or speaking so slowly that other people could have noticed; or the opposite, being so fidgety or restless that you have been moving around a lot more than usual: Not at all Thoughts that you would be b marilia off or of hurting yourself in some way: Not at all Total Score: 4 Interpretation: Minimal Depression Interpretation and Intervention Depression Leonel gould Findings: Negative Follow-Up for Depression: : review of PH Q-9 found negative result, no follow-up needed SDOH Questions SDOH Questions In the past year have you or any family members you live with been unable to get any of the following when it was really needed? Check all that apply:: None Fall Risk History Have you had any falls with injury in the past year?: No Have you had two or more falls in the year?: No Communication Needs Communication Needs Does the patient have a hearing impairment: No Does the patient have a vision impairmen t?: Yes ?If yes, what is the vision impairment?: Glasses Does the patient have a cognition impair ment?: No Examination Category Sub-Category Detail Notes Category Not es General Examination GENERAL APPEARANCE: alert, w ell hydrated, in no distress , female HEAD: normocephalic EYES: BOTH EYES, normal EARS: BOTH EARS, normal THROAT: no erythema, no exud ate, pharynx normal NECK/THYROID: no carotid bruit HEART: regular rate and rhy thm, no murmurs, rubs, gallops LUNGS: no wheezes, rales, r honchi, good air movement, clear to auscultation bilaterally ABDOMEN: no hepatosplenomegal y, soft, nontender, nondistended SKIN: good turgor EXTREMITIES: no edema BREASTS: no masses palpable b ilaterally LYMPH NODES: no cervical adenopat hy RECTAL EXAM: stool guaiac negativ e, no masses palpable FEMALE GENITOURINARY: non-palpable ovari es
--- OUTSIDE RECORDS SUMMARY | 2024-04-23 13:50 | XMS_ITS ---
Author Organization Storm Gonzalez MD Address [address] [place] [phone] Care Team Providers Care Registered Nurse Bone Marrow Transplant Name Role Phone Storm Gonzalez Primary Care [...] Date Provider Diagnosis Storm Gonzalez MD [address] [place] [phone] 04/15/2024 Storm Gonzalez Multiple sclerosis, primary progressive [...] Next Appt Details Provider Name:Storm Rojas ier, 10/14/2024 07:45:00 AM, [address], [address], [place], [place], [phone], Provider Name:Storm Rojas ier, 10/21/2024 02:30:00 PM, [address], [address], [place], [place], [phone], Progress Notes * MELINDADana WEBSTER ADOB: 0 (73 yo F)Acc No.[id number]:04/15/2024 Progress Notes Patient:?MELINDA Dana Adry Provider:?Storm Gonzalez MD :1950???Age:73 Y???Sex:Female D ate:04/15/2024 Address:[address] [place], [place] [id number] Subjective: * Chief Complaints: * ???6 month * HPI: ???Symptom(s):?patient is a 73 yo female here for 6 moth foloow up visit, never heard wheezing. * ROS:?General/Constitutional:?Denies?Chills.?Denies?Fatigue.?Denies?Fever.?Denies?Headache.?ENT:?Patient denies?decreased sense of smell, any loss of taste, sore throat.?Denies?Sore throat.?Respiratory:?Denies?Cough.?Admits?Shortness of breath at rest.?Denies?Shortness of breath with exertion.?Gastrointestinal:?Denies?Diarrhea.?Denies?Nausea.?Musculoskeletal:?Patient denies?muscle aches.?Peripheral Vascular:?Patient denies?red and blue toes.? * Medical History:? * Surgical History:? * Hospitalization/Major Diagno stic Procedure:? * Medications:?TakingVentolin HFA 108 (90 Base) MCG/ACT Aerosol Solution [...] Allergies:?N.K.D.A.yes[Aller gies Verified] Objective: * Vitals:?Ht: 63, Wt: 154, BMI :27.28, BP:124/58, Wt-k.85. * Examination: ???General Examination: ?GENERAL APPEARANCE:?alert, well hydrated, in no distress.?HEAD:?normocephalic.?SKIN:?good turgor.?HEART:?no murmurs, rubs, gallops, regular rate and rhythm.?LUNGS:?no wheezes, rales, rhonchi, good air movement, clear to auscultation bilaterally.? Assessment: * Assessment: 1.?Multiple sclerosis, prima ry progressive - G35 (Primary)??? Plan: * Treatment: * Procedure Codes:? * * Sign off status: Completed true * Provider:?Storm Gonzaelz MD Date:?0 04/15/2024 Generated for Nelson moura/Dane/eTnoemi on:?04/23/2024 01:49 PM EST History and Physical [...]
--- OUTSIDE RECORDS SUMMARY | 2024-04-23 13:50 | XMS_ITS ---
Author Organization Storm Gonzalez MD Address [address] [place], [place] [id number] Care Team Providers Care Haulage Engine Operator Name Role Phone Storm Gonzalez Primary Care Provider [phone] Results Component Value Reference Range Notes Complete Blood Count Auto Di ff Reviewed date:10/12/2023 12:13:43 PM Interpretation: Performing Lab:[facility], [address] [place] [phone] Notes/Report: White Blood Count 5.6 4.8-10.8 X10*3/uL [...] NRBC Abs Auto 0.000 0.0-0.012 X10*3/uL Comprehensive [place]. Panel Fa st Reviewed date:10/12/2023 12:38:01 PM Interpretation: Performing Lab:[address] [phone] Notes/Report: Sodium 140 135-145 mmol/L Potassium 4.3 3.3-5.1 mmol/L Chloride 105 96-108 mmol/L Carbon Dioxide 27 22-29 mmol/L Anion Gap 12 12-20 Blood Urea Nitrogen 8 9-16 mg/dL Creatinine 0.72 0.5-1.4 mg/dL Estimated Glomerular Filt Rate > 60 NOTE: For -Greek individuals, multiply the result by 1.210. Chronic [...] Panel Reviewed date:10/12/2023 12:10:00 PM Interpretation: Performing Lab:[address] [phone] Notes/Report: Triglycerides 91 <150 mg/dL Desirable Triglyceride: [...] t Reviewed date:10/12/2023 12:37:44 PM Interpretation: Performing Lab:[facility], [address] [place] [phone] Notes/Report: Urine, Clean Catch Color Urine Yellow Appearance Urine Clear PH 7.0 5.0-9.0 Glucose Urine UA Negative Negative mg/dL Urine Blood Negative Negative Specific [place] - Urine 1.015 1.005-1.025 Urine Protein Negative Neg-Trace mg/dL Urine Ketones Negative Negative mg/dL Nitrite Urine Negative Negative Leukocyte Esterase Urine Trace Negative RBC Urine 0-2 0-2 /HPF WBC Urine 0-5 0-5 /HPF Squamous Epithelial Cell Urine 0-2 0-2 /HPF Bacteria Urine None Seen None Seen Hyaline Casts Urine 0-2 0-2 /LPF REASON FOR VISIT FASTING LABS Encounters Encounter Location Date Provider Diagnosis Storm Gonzalez MD [address] [place] [address] [place] [phone] 10/12/2023 Storm Gonzalez Multiple sclerosis, primary progressive G35 Assessments Encounter Date Diagnosis (ICD Code) Assessment Notes Treatment Notes Treatment Clinical Notes Section Notes 10/12/2023 Multiple sclerosis, primary progressive (ICD-10 - G35) Plan Of Treatment Next Appt Details Provider Name:Storm long, 10/14/2024 07:45:00 AM, [address] [place] [address], [address], [phone], Provider Name:Storm long, 10/21/2024 02:30:00 PM, [address] [place] [address], [address], [phone], Progress Notes * Dana MURPHY ADOB: 0 (73 yo F)Acc No.[id number]:10/12/2023 Progress Note Patient:?Dana MURPHY Provider:?Storm Gonzalez MD :1950???Age:73 Y???Sex:Female D ate:10/12/2023 Address:[address] [place] [address], [id number] Subjective: * Chief Complaints: * ???1. FASTING LABS. * Medical History:? Objective: * Vitals:? Assessment: * Assessment: 1.?Multiple sclerosis, prima ry progressive - G35 (Primary)??? Plan: * Treatment: * Procedure Codes:?72708 VENIP UNCT, ROUTINE* * * The named appointment provid er may or may not be the originator of this progress note, and it is not deemed complete until electronically signed by the appointment provider. Sign off status: Pending * Provider:?Storm Gonzalez MD Date:?0 10/12/2023 Generated for Nelson moura/Dane/eTtobismitting on:?04/23/2024 01:49 PM EST
== END 2024-04-23 11:23 | disposition home or self-care (01) ==
LOC: HO.MRI 11:22
PROVIDERS: PCP Internal Medicine; Visit Provider Internal Medicine
DX: G35 Multiple sclerosis (principal)
CPT/HCPCS: 70551

== ENCOUNTER → 2024-04-23 11:37 | Outpatient (BNV) | payer MEDICARE, SELFPAY | PROVIDERS: PCP Internal Medicine; Visit Provider Radiology Diagnostic Radiology | DX: G31.89 Other specified degenerative diseases of nervous system (principal); G37.9 Demyelinating disease of central nervous system, unspecified | CPT/HCPCS: 70551 ==

== ENCOUNTER 2024-09-05 12:02 | Outpatient (REF) | payer MEDICARE, SELFPAY ==
--- NOTE | ~2024-09-05 | US_ITS ---
EXAMINATION: US TRIPLEX UPPER EXTREMITY, RIGHT CLINICAL INFORMATION: Phlebitis COMPARISON: None available. TECHNIQUE: Color-flow triplex imaging with spectral analysis and compression Doppler was performed on the right upper extremity. FINDINGS: The right internal jugular, subclavian, and axillary veins are patent and free of thrombus. The imaged segment of the right brachiocephalic vein is patent. Spectral doppler waveforms are normal. The brachial, basilic, cephalic, radial, and ulnar veins are patent and compressible. Imaging performed in the area of the patient's localized pain demonstrates no mass, fluid collection, or other abnormality. US/US venous duplex UE RT IMPRESSION: No evidence of deep venous thrombosis involving the right upper extremity. Electronically signed by: Jorge Luis Toney MD 09/05/2024 12:58 PM EDT
--- OUTSIDE RECORDS SUMMARY | 2024-09-05 12:08 | XMS_ITS | Patient Health Record ---
Author Organization [facility] Address [address] [place] [phone] Care Team Providers Care Bottle Packing Machine Cleaner Name Role Phone Storm Gonzalez MD Primary Care Provider Bridger Kumar Unavailable [phone] Reason For Referral No Information Medications Medication SIG (Take, Route, Frequency, Duration) Notes Start Date End Date Status Antacid Active Calcium Active Probiotic Active Multivitamin Active Fluoxetine 10 once a day Activ e Social History Tobacco Use: Social History Observation Description Date Details (start date - stop date) Never Smoker NA - NA Tobacco Use/Smoking Question Answer Notes Patient is a nonsmoker Alcohol Screen Question Answer Notes Did you have a drink contain ing alcohol in the past year? Yes How often did you have a dri nk containing alcohol in the past year? Monthly or less (1 point) How many drinks did you have on a typical day when you were drinking in the past year? 1 or 2 drinks (0 point) How often did you have 6 or more drinks on one occasion in the past year? Never (0 point) Points 1 Interpretation Negative Section Notes: Nonsmoker; no sig. alcohol Problems Problem Type SNOMED Code ICD Code Onset Dates Problem Status W/U Status Risk Notes Problem 632864379 Encounter for screening for malignant neoplasm of colon (Z12.11) Active confirmed Problem 906266804859747 Pre-procedural examination (Z01.818) Active confirmed Plan Of Treatment Future Test Test Name Order Date COLONOSCOPY 12/14/2017 Insurance Providers Payer Name Payer Address Payer Phone Subscriber Number Group Number Insured Name Patient Relationship to Insured Coverage Start Date Coverage End Date MEDICARE OF [place] [address] [place] [address] [id number] DANIELA LAWRENCE Self - patient is the insured [employer] CLAIMS [address] [place] [address] [id number] DANIELA LAWRENCE Self - patient is the insured Medical (General) History Medical History History ICD Code Denies SD,DM,CVA,Lung disease,renal dise ase Multiple sclerosis Neg. colonoscopy in 07/2007 Depression Surgical History Surgery Date(Month/Year) Tonsillectomy
--- OUTSIDE RECORDS SUMMARY | 2024-09-05 12:08 | XMS_ITS | Clinical Summary ---
Author Organization [facility] Address [address] [place] [address] Phone Care Team Providers Care Tobacco Drummer Name Role Phone Unavailable Primary Care Provider Unavailabl e Social History Tobacco Use Types Packs/Day Years Used Date Smoking Tobacco: Never Assessed Comments Unknown Sex and Gender Information Value Date Recorded Sex Assigned at Not on file Legal Sex Female 8:35 AM EDT Gender Identity Not on file Sexual Orientation Not on file Plan of Treatment Not on file Medical Devices Not on file Additional Source Comments The information contained in this document represents components of the legal health record. It is not the complete legal health record.[facility]
--- OUTSIDE RECORDS SUMMARY | 2024-09-05 12:08 | XMS_ITS | Patient Health Record ---
Author Organization Storm Gonzalez MD Address [address] [place], [place] [phone] Care Team Providers Care Executive Vice President And Chief Financial Officer Name Role Phone Storm Gonzalez Primary Care Provider Allergies No Known Allergies Results Component Value Reference Range Notes Complete Blood Count Auto Di ff Reviewed date:10/12/2023 12:13:43 PM Interpretation: Performing Lab:[facility], [address] [place] [phone] Notes/Report: White Blood Count 5.6 4.8-10.8 X10*3/uL [...] NRBC Abs Auto 0.000 0.0-0.012 X10*3/uL Comprehensive [place]. Panel Fa st Reviewed date:10/12/2023 12:38:01 PM Interpretation: Performing Lab:[address] [address] Notes/Report: Sodium 140 135-145 mmol/L Potassium 4.3 3.3-5.1 mmol/L Chloride 105 96-108 mmol/L Carbon Dioxide 27 22-29 mmol/L Anion Gap 12 12-20 Blood Urea Nitrogen 8 9-16 mg/dL Creatinine 0.72 0.5-1.4 mg/dL Estimated Glomerular Filt Rate > 60 NOTE: For -[place]ian individuals, multiply the result by 1.210. Chronic [...] Panel Reviewed date:10/12/2023 12:10:00 PM Interpretation: Performing Lab:[address] [address] Notes/Report: Triglycerides 91 <150 mg/dL Desirable Triglyceride: [...] t Reviewed date:10/12/2023 12:37:44 PM Interpretation: Performing Lab:[facility], [address] [place] [phone] Notes/Report: Urine, Clean Catch Color Urine Yellow Appearance Urine Clear PH 7.0 5.0-9.0 Glucose Urine UA Negative Negative mg/dL Urine Blood Negative Negative Specific Nathalie - Urine 1.015 1.005-1.025 Urine Protein Negative Neg-Trace mg/dL Urine Ketones Negative Negative mg/dL Nitrite Urine Negative Negative Leukocyte Esterase Urine Trace Negative RBC Urine 0-2 0-2 /HPF WBC Urine 0-5 0-5 /HPF Squamous Epithelial Cell Urine 0-2 0-2 /HPF Bacteria Urine None Seen None Seen Hyaline Casts Urine 0-2 0-2 /LPF MR head/brain wo con (Not ye t reviewed by provider) Interpretation:[facility] Radiology called Performing Lab: Notes/Report: [address] [address] Magnetic Resonance Report Signed Patient: Dana Murphy MR#: [id number] 09 : 1950 Acct:[id number] Age/Sex: 73 / F ADM Date: 04/23/24 Loc: HO.MRI Attending Dr: Rahul Hampton MD Ordering Physician: Rahul Hampton MD Date of Service: 04/23/24 Procedure(s): MR head/brain wo con Accession Number(s): [id number] cc: Storm Gonzalez MD; Rahul Hampton MD EXAMINATION: MR BRAIN WITHOUT CONTRAST CLINICAL INFORMATION: Multiple sclerosis. COMPARISON: September 14, 2021. TECHNIQUE: MRI of the brain was obtained using routine sequences without contrast. FINDINGS: There are multifocal, irregular shaped, perpendicularly oriented to the corpus callosum, different sizes, hypointense T1 hyperintense T2 FLAIR nonprotected effusion deep periventricular white matter signal abnormality involving mostly centrum semiovale and ann radiata, the largest in the right parietal and left frontal region. The majority of these lesions demonstrated a black hole pattern . There are few hyperintense T2 FLAIR signal in the left midbrain. No acute intracranial hemorrhage, mass effect, midline shift, hydrocephalus or herniation. Prominence of the extra-axial CSF spaces cerebral sulci and ventricles. Flow-void signal within the main vessels is normal. Sellar/suprasellar region demonstrated no gross signal abnormality. Craniocervical junction is intact and normal. There is volume loss of the corpus callosum. MR/MR head/brain wo con IMPRESSION: Severe demyelinating plaques involving mostly the supratentorial compartment. Global cerebral atrophy. No acute stroke/nonhemorrhagic ischemia. Electronically signed by: J Luis Murillo MD 04/25/2024 11:58 AM EST Dictated By: J Luis Neal MD Signed By: <Electronically signed by J Luis Barnard MD in OV> 04/25/24 1158 DD/ 1137 TD/TT: 04/23/[address] Counsellor: [place] [address] Magnetic Resonance Report Signed Patient: Ady Murphy MR#: [id number] 09 : 1950 Acct:[id number] Age/Sex: 73 / F ADM Date: 04/23/24 Loc: HO.MRI Attending Dr: Rahul Hampton MD Ordering Physician: Rahul Hampton MD Date of Service: 04/23/24 Procedure(s): MR head/brain wo con Accession Number(s): [id number] cc: Storm Gonzalez MD; Rahul Hampton MD EXAMINATION: MR BRAIN WITHOUT CONTRAST CLINICAL INFORMATION: Multiple sclerosis. COMPARISON: September 14, 2021. TECHNIQUE: MRI of the brain was obtained using routine sequences without contrast. FINDINGS: There are multifocal , irregular shaped, perpendicularly oriented to the corpus callosum, different sizes, hypointense T1 hyperintense T2 FLAIR nonprotected effusio n deep periventricular white matter signal abnormality involvin g mostly centrum semiovale and ann radiata, the largest in the right parietal and left frontal region. The majority of these lesions demonstrated a black hole pattern . There are few hyperintense T2 FLAIR signal in the left midbrain. No acute intracrania l hemorrhage, mass effect, midline shift, hydrocephalus or herniation. Prominence of the extra-axial CSF spaces cerebral sulci and ventricles. Flow-void signal wit hin the main vessels is normal. Sellar/suprasellar region demonstrated no gross signal abnormality. Craniocervical junct ion is intact and normal. There is volume loss of the corpus callosum. MR/MR head/brain wo con IMPRESSION: Severe demyelinating plaques involving mostly the supratentorial compartment. Global cerebral atrophy. No acute stroke/nonhemorrhagic ischemia. Electronically ronnell d by: J Luis Murillo MD 04/25/2024 11:58 AM EST Dictated By: J Luis Villanueva MD Signed By: <Electronically signed by J Luis Barnard MD in OV> 04/25/24 1158 DD/ 1137 TD/TT: 04/23/[address] Counsellor: Reason For Referral No Information Medications Medication [...] Problem Status W/U Status Risk Notes Problem 90452200 Mitral valve disorder (I05.9) Active confirmed Problem 92748441 Osteoporosis (M81.0) Active confirmed Problem 36781963 Dysthymia (F34.1) Active confirmed Problem 658232403 Ankle arthritis (M19.079) Active confirmed Problem 093179783 Mild intermitten t asthmatic bronchitis with acute exacerbation (J45.21) Active confirmed Problem 618292698 Family history o f MS (multiple sclerosis) (Z82.0) Active confirmed Problem 178064395 Multiple sclerosis, primary progressive (G35) Active confirmed Vital Signs Blood pressure diastolic 66 mm Hg 09/05/2024 Height 63 in 09/05/2024 Blood pressure systolic 94 mm Hg 09/05/2024 Weight 153 lbs 09/05/2024 BMI 27.1 kg/m2 09/05/2024 Encounters Encounter Location Date Provider Diagnosis Storm Gonzalez MD [address] [place] [id number] 10/12/2023 Storm Gonzalez Multiple sclerosis, primary progressive G35 Storm Gonzalez MD [address] [place] [phone] 09/05/2024 Storm Gonzalez Phlebitis and thrombophlebitis of unspecified site I80.9 [address] MD [address] [place] [id number] 10/18/2023 Storm Gonzalez Multiple sclerosis, primary progressive G35 ; Palpitation R00.2 ; Mild intermittent asthmatic bronchitis with acute exacerbation J45.21 and Family history of MS (multiple sclerosis) Z82.0 Storm Gonzalez MD [address] [place] [address] Drive [address] [place] [id number] 04/15/2024 Storm Gonzalez Multiple sclerosis, primary progressive G35 Assessments Encounter Date Diagnosis (ICD Code) Assessment Notes Treatment Notes Treatment Clinical Notes Section Notes 10/12/2023 Multiple sclerosis, primary progressive (ICD-10 - G35) 09/05/2024 Phlebitis and thrombophlebitis of unspecified site (ICD-10 - I80.9) pending diagnostic testing 10/18/2023 Multiple sclerosis, primary progressive (ICD-10 - [...] 11/21/2016 CREATININE 11/21/2016 BONE DENSITY DEXA 10/08/2020 US SOFT TISSUE 09/05/2024 US ARM RT VENOUS DOPPLER 09/05/2024 ECG 30 day event monitor 06/29/2022 FL barium swallow modified 10/16/2022 MR head/brain wo con 04/23/2024 Future Test Test Name Order Date BONE DENSITY DEXA 01/26/2020 MAMMOGRAM DIGITAL BILATERAL SCREEN 01/25 Next Appt Details Provider Name:Storm Rojas ier, 09/18/2024 11:30:00 AM, [address] [place] [address], [address], [place], [place], [phone], Provider Name:Storm Rojas ier, 10/14/2024 07:45:00 AM, [address] [place] [address], [address], [place], [place], [phone], Provider Name:Storm Rojas ier, 10/21/2024 02:30:00 PM, [address] [place] [address], [address], [place], [place], [phone], Insurance Providers Payer Name Payer Address Payer Phone Subscriber Number Group Number Insured Name Patient Relationship to Insured Coverage Start Date Coverage End Date MEDICARE NHIC ADDIE [address] [place] [address] [id number] Jeffrey, Dana Self - patient is the insured [employer] [address] [place], [place] [id number] [phone] [id number] Dana Murphy Self - patient is the insured Medical (General) History Medical History History ICD Code colonoscopy 2008 due in 10; colonoscopy done by w/Dr. Davis on 01/18/18 - no further testing indicated per Dr. Davis discussed the need for the n ew shingrix is going to wait for the new covd vaccine
== END 2024-09-05 12:03 | disposition home or self-care (01) ==
LOC: HO.US 12:02
PROVIDERS: PCP Internal Medicine; Visit Provider Internal Medicine
DX: I82.601 Acute embolism and thrombosis of unspecified veins of right upper extremity (principal); M79.601 Pain in right arm
CPT/HCPCS: 93971

== ENCOUNTER → 2024-09-05 12:10 | Outpatient (BNV) | payer MEDICARE, SELFPAY | PROVIDERS: PCP Internal Medicine; Visit Provider Radiology Diagnostic Radiology | DX: R22.31 Localized swelling, mass and lump, right upper limb (principal) | CPT/HCPCS: 93971 ==

== ENCOUNTER 2024-10-14 11:24 | Outpatient (REF) | payer MEDICARE, SELFPAY ==
--- OUTSIDE RECORDS SUMMARY | 2024-09-05 07:00 | XMS_ITS ---
Author Organization Storm Gonzalez MD Address [address] [place] [phone] Care Team Providers Care Diamond Finishing Supervisor Name Role Phone Storm Gonzalez Primary Care [...] Storm Gonzalez MD [address] [place] [phone] 09/05/2024 Storm Gonzalez Phlebitis and thrombophlebitis of [...] 2 Weeks, Reason: Provider Name:Storm Rojas ier, 11/04/2024 02:30:00 PM, [address] [facility], [address], [place], [place], [phone], Progress Notes * Dana MURPHY ADOB: 0 (74 yo F)Acc No.[id number]:09/05/2024 Progress Notes Patient: Dana WADE Provider: Rosa Gonzalez MD :1950 A ge:74 Y S ex:Female Date:09/05/2024 Address:[address] [place] [address], [id number] Subjective: * Chief Complaints: * R ight [...] 09/05/2024 Generated for Nelson moura/Dane/Gabeitting on: 0 10/14/2024 12:22 PM EDT History and Physical Notes * [...]
--- OUTSIDE RECORDS SUMMARY | 2024-09-18 07:30 | XMS_ITS ---
Author Organization Storm Gonzalez MD Address [address] [place] [phone] Care Team Providers Care Research And Development Tester Name Role Phone Storm Gonzalez Primary Care [...] Status Risk Notes Problem Cervical disc disease (504703158) Cervical disc disease (M50.90) Active confirmed Vital Signs Blood pressure systolic 132 mm Hg 09/19/19 25 Blood pressure diastolic 58 mm Hg 025 Height 63 in 09/18/2024 Weight 153 lbs 09/18/2024 BMI 27.1 kg/m2 09/18/2024 Encounters Encounter Location Date Provider Diagnosis Storm Gonzalez MD [address] [place] [address] [place] [id number] 09/18/2024 Storm Gonzalez Cervical disc disease M50.90 [...] Next Appt Details Provider Name:Storm Rojas ier, 11/04/2024 02:30:00 PM, [address] [place] [address], [address], [place], [place], [phone], Progress Notes * Dana MURPHY ADOB: 0 (74 yo F)Acc No.[id number]:09/18/2024 Progress Notes Patient: Dana WADE Provider: Rosa Gonzalez MD :1950 A ge:74 Y S ex:Female Date:09/18/2024 Address:[address] [place] [address], [id number] Subjective: * Chief Complaints: * 2 weekAccompanied [...] MD Date: 0 09/18/2024 Generated for Nelson moura/Dane/Sanjivsmitting on: 0 10/14/2024 12:21 PM EDT History and Physical Notes * [...]
--- OUTSIDE RECORDS SUMMARY | 2024-10-14 03:45 | XMS_ITS ---
Author Organization Storm Gonzalez MD Address [address] [place], [place] [phone] Care Team Providers Care Director It Name Role Phone Storm Gonzalez Primary Care Provider [phone] Results Component Value Reference Range Notes Complete Blood Count Auto Di ff (Not yet reviewed by provider) Interpretation: Performing Lab:[facility], [address] [place] [phone] Notes/Report: White Blood Count 5.3 4.8-10.8 X10*3/uL [...] Abs Auto 0.000 0.0-0.012 X10*3/uL Lipid Panel (Not yet reviewe d by provider) Interpretation: Performing Lab:[facility], [address] [place] [phone] Notes/Report: Triglycerides 121 <150 mg/dL Desirable Triglyceride: [...] Location Date Provider Diagnosis Storm Gonzalez MD [address] [place] [address] Drive [address] [place], [place] [phone] 10/14/2024 Storm Gonzalez Multiple sclerosis, primary progressive G35 Assessments Encounter Date Diagnosis (ICD Code) Assessment Notes Treatment Notes Treatment Clinical Notes Section Notes 10/14/2024 Multiple sclerosis, primary progressive (ICD-10 - G35) Plan Of Treatment Pending Test Test Name Order Date Complete Blood Count Auto Diff 5 Comprehensive [place]. Panel Fast 5 Lipid Panel 10/14/2024 UA ClnCatch+Micro w/rflx Cult 10/14/2024 Next Appt Details Provider Name:Storm Rojas ier, 11/04/2024 02:30:00 PM, [address] [place] [address], [address], [place], [place], [phone], Progress Notes * Dana MURPHY ADOB: 0 (74 yo F)Acc No.[id number]:10/14/2024 Progress Note Patient: Dana WADE Provider: Rosa Gonzalez MD :1950 A ge:74 Y S ex:Female Date:10/14/2024 Address:[address] [place] [address], [phone] Subjective: * Chief Complaints: * 1 . [...] Gonzalez MD Date: 10/14/2024 Generated for Nelson moura/Dane/Gabeitting on: 10/14/2024 12:22 PM EDT
[2024-10-14 11:27] LABS: MANUAL DIFF FLAG NO
[2024-10-14 11:35] LABS: Hematocrit 40.6 % (37.0-47.0); Hemoglobin 13.4 g/dl (12.0-16.0); Imm Gran Abs Auto 0.02 X10*3/uL (0.00-0.03); Imm Gran Pct Auto 0.4 % (0.0-0.4); Lymphocytes Absolute Auto 1.8 X10*3/uL (1.2-4.9); Mean Corpuscular HGB Conc 33.0 g/dl (31.0-35.0); Mean Corpuscular Hemoglobin 30.5 pg (27.0-33.0); Mean Corpuscular Volume 92.3 fL (80.0-98.0); NRBC Abs Auto 0.000 X10*3/uL (0.0-0.012); NRBC Pct Auto 0.0 /100WBC (0.0-0.2); Platelet Count 273 X10*3/uL (160-400); Red Blood Count 4.40 X10*6/uL (4.20-5.50); White Blood Count 5.3 X10*3/uL (4.8-10.8)
[2024-10-14 12:14] LABS: Alanine Aminotransferase 21 U/L (0-31); Albumin Level 4.0 g/dL (3.5-5.0); Alkaline Phosphatase 75 U/L (39-117); Anion Gap 10 (12-20); Aspartate Amino Transferase 29 U/L (5-31); Blood Urea Nitrogen 12 mg/dL (9-16); Calcium 9.1 mg/dL (8.4-10.2); Carbon Dioxide 27 mmol/L (22-29); Chloride 106 mmol/L (96-108); Cholesterol 218 mg/dL (<200); Estimated Glomerular Filt Rate > 60; HDL Cholesterol 64 mg/dL (>40); Potassium 4.2 mmol/L (3.3-5.1); Sodium 139 mmol/L (135-145); Total Protein 6.5 g/dL (6.5-8.0); Triglycerides 121 mg/dL (<150)
--- OUTSIDE RECORDS SUMMARY | 2024-10-14 12:22 | XMS_ITS | Encounter Summary ---
Author Organization [facility] Address [address] [place] [address] Phone Care Team Providers Care Youth Accommodation Support Worker Name Role Phone Unavailable Primary Care Provider Unavailabl e Encounter Details Date Type Department Care Team (Latest Contact Info) Description 12/14/2021 Transcribe Orders Virtual Department [address] [place] [phone] Rahul Hoang MD [address] [place] [address], [address] [place], [place] [phone] [email or web address] Dysphagia, unspecified type (Primary Dx) Social History Tobacco Use Types Packs/Day Years Used Date Smoking Tobacco: Never Assessed Comments Unknown Sex and Gender Information Value Date Recorded Sex Assigned at Not on file Legal Sex Female 8:35 AM EDT Gender Identity Not on file Sexual Orientation Not on file documented as of this encounter Plan of Treatment Not on file documented as of this encounter Visit Diagnoses Diagnosis Dysphagia, unspecified type- Primary documented in this encounter Additional Source Comments The information contained in this document represents components of the legal health record. It is not the complete legal health record.[facility]
--- OUTSIDE RECORDS SUMMARY | 2024-10-14 12:22 | XMS_ITS | Patient Health Record ---
Author Organization Storm Gonzalez MD Address [address] [place], [place] [phone] Care Team Providers Care Leather Toggler Name Role Phone Storm Gonzalez Primary Care Provider Allergies No Known Allergies Results Component Value Reference Range Notes Complete Blood Count Auto Di ff (Not yet reviewed by provider) Interpretation: Performing Lab:[facility], [address] [place] [phone] Notes/Report: White Blood Count 5.3 4.8-10.8 X10*3/uL [...] yet reviewe d by provider) Interpretation: Performing Lab:[facility], [address] [place] [phone] Notes/Report: Triglycerides 121 <150 mg/dL Desirable Triglyceride: [...] low results in patients with liver disease. MR head/brain wo con Reviewed date:10/02/2024 08:47:00 AM Interpretation:[facility] Radiology called Performing Lab: Notes/Report: [address] [address] Magnetic Resonance Report Signed with Addenda Patient: Dana Murphy MR#: [id number] 09 : 1950 Acct:[id number] Age/Sex: 73 / F ADM Date: 04/23/24 Loc: HO.MRI Attending Dr: Rahul Hampton MD Ordering Physician: Rahul Hampton MD Date of Service: 04/23/24 Procedure(s): MR head/brain wo con Accession Number(s): [id number] cc: Storm Gonzalez MD; Rahul Hampton MD ADDENDUM ADDENDUM #1 No gross change in the extensive supratentorial demyelinating plaques since August 2021. Electronically signed by: J Luis Murillo MD 10/01/2024 02:28 PM EDT RP Addendum Dictated By: J Luis Barnard MD Addendum Signed By: <Electronically signed by J Luis Barnard MD in OV> 10/01/24 1428 Addendum Cosigned By: DD/ /13/1136 TD/TT: 04/23/2407/13/1152 EXAMINATION: MR BRAIN WITHOUT CONTRAST CLINICAL INFORMATION: [...] Luis Murillo MD 04/25/2024 11:58 AM EST RP Dictated By: J Luis Neal MD Signed By: <Electronically signed by J Luis Barnard MD in OV> 04/25/24 1158 DD/ 36 TD/TT: 04/23/241152 Batter Depositor: [address] [address] Magnetic Resonance Report Signed with Patricia Patient: Ady Murphy MR#: [id number] 09 : 1950 Acct:[id number] Age/Sex: 73 / F ADM Date: 04/23/24 Loc: HO.MRI Attending Dr: Rahul Hampton MD Ordering Physician: Rahul Hampton MD Date of Service: 04/23/24 Procedure(s): MR head/brain wo con Accession Number(s): [id number] cc: Storm Gonzalez MD; Rahul Hampton MD ADDENDUM ADDENDUM #1 No gross change in t he extensive supratentorial demyelinating plaques since August 2021. Electronically ronnell d by: J Luis Murillo MD 10/01/2024 02:28 PM EDT RP Addendum Dictated By : J Luis Barnard MD Addendum Signed By: <Electronically signed by J Luis Barnard MD in OV> 10/01/24 1428 Addendum Cosigned By: DD/ /13/1136 TD/TT: 04/23/2407/13/1152 EXAMINATION: MR BRAIN WITHOUT CONTRAST CLINICAL INFORMATION: [...] 04/25/24 1158 DD/ 1137 TD/TT: 04/23/24 1153 Batter Depositor: US venous duplex UE RT Reviewed date:09/05/2024 02:07:41 PM Interpretation: Performing Lab: Notes/Report: [place] [address] Ultrasound Report Signed Patient: Dana Murphy MR#: [id number] 09 : 1950 Acct:[id number] Age/Sex: 74 / F ADM Date: 09/05/24 Loc: HO.US Attending Dr: Storm Gonzalez MD Ordering Physician: Storm Gonzalez MD Date of Service: 09/05/24 Procedure(s): US venous duplex UE RT Accession Number(s): [id number] cc: Storm Gonzalez MD EXAMINATION: US TRIPLEX UPPER EXTREMITY, RIGHT CLINICAL INFORMATION: Phlebitis COMPARISON: None available. TECHNIQUE: Color-flow triplex imaging with spectral analysis and compression Doppler was performed on the right upper extremity. FINDINGS: The right internal jugular, subclavian, and axillary veins are patent and free of thrombus. The imaged segment of the right brachiocephalic vein is patent. Spectral doppler waveforms are normal. The brachial, basilic, cephalic, radial, and ulnar veins are patent and compressible. Imaging performed in the area of the patient's localized pain demonstrates no mass, fluid collection, or other abnormality. US/US venous duplex UE RT IMPRESSION: No evidence of deep venous thrombosis involving the right upper extremity. Electronically signed by: Jorge Luis Toney MD 09/05/2024 12:58 PM EDT RP Dictated By: Jorge Luis Toney MD Signed By: <Electronically signed by Jorge Luis Toney MD in OV> 09/05/24 1258 DD/ 1230 TD/TT: 09/05/24 1245 Batter Depositor: [place] [address] Ultrasound Report Signed Patient: Ady Murphy MR#: [id number] 09 : 1950 Acct:[id number] Age/Sex: 74 / F ADM Date: 09/05/24 Loc: .US Attending Dr: Storm Gonzalez MD Ordering Physician: Storm Gonzalez MD Date of Service: 09/05/24 Procedure(s): US chayo ous duplex UE RT Accession Number(s): [id number] cc: Storm Gonzalez MD EXAMINATION: US TRIPLEX UPPER EXTREMITY, RIGHT CLINICAL INFORMATION: Phlebitis COMPARISON: None available. TECHNIQUE: Color-flow triplex imaging with spectral analysis and compression Doppler was performe d on the right upper extremity. FINDINGS: The right internal jugular, subclavian, and axillary veins are patent and free of thrombus . The imaged segment of the right brachiocephalic vein is patent. Spectral doppler waveforms are normal. The brachial, basili c, cephalic, radial, and ulnar veins are patent and compressible. Imaging performed in the area of the patient's localized pain demonstrates no mass , fluid collection, or other abnormality. US/US venous duplex UE RT IMPRESSION: No evidence of deep venous thrombosis involving the right upper extremity. Electronically ronnell d by: Jorge Luis Toney MD 09/05/2024 12:58 PM EDT RP Dictated By: Jorge Luis Toney MD Signed By: <Electronically signed by Jorge Luis Toney MD in OV> 09/05/24 1258 DD/ 1230 TD/TT: 09/05/24 1245 Batter Depositor: Comprehensive Met. Panel (No t yet reviewed by provider) Interpretation: Performing Lab:[facility], [address] [facility] [facility], [place] [address] Notes/Report: Sodium 139 135-145 mmol/L Potassium 4.2 3.3-5.1 mmol/L Chloride 106 96-108 mmol/L Carbon Dioxide 27 22-29 mmol/L Anion Gap 10 12-20 Blood Urea Nitrogen 12 9-16 mg/dL Creatinine 0.69 0.5-1.4 mg/dL Estimated Glomerular Filt Rate > 60 Chronic Kidney Disease: Estimated GFR < 60 mL/min/1.73m2 Severe Kidney Disease: Estimated GFR < 15 mL/min/1.73m2 Glucose Random 80 60-115 mg/dL Calcium 9.1 8.4-10.2 mg/dL Bilirubin Total 0.4 0.0-1.0 mg/dL Aspartate Amino Transferase 29 5-31 U/L Alanine Aminotransferase 21 0-31 U/L Total Protein 6.5 6.5-8.0 g/dL Albumin Level 4.0 3.5-5.0 g/dL Alkaline Phosphatase 75 39-117 U/L Reason For Referral No Information Medications Medication [...] a day for 30 days 10/30/2016 Not-Taking Immunizations Vaccine Route Administration Date Status Comme [...] Problem Status W/U Status Risk Notes Problem 99417268 Mitral valve disorder (I05.9) Active confirmed Problem 18945392 Osteoporosis (M81.0) Active confirmed Problem Cervical disc disease (638013676) Cervical disc disease (M50.90) Active confirmed Problem 01682038 Dysthymia (F34.1) Active confirmed Problem 147391078 Ankle arthritis (M19.079) Active confirmed Problem 297704506 Mild intermitten t asthmatic bronchitis with acute exacerbation (J45.21) Active confirmed Problem 723392839 Family history o f MS (multiple sclerosis) (Z82.0) Active confirmed Problem 815533543 Multiple sclerosis, primary progressive (G35) Active confirmed Vital Signs Blood pressure diastolic 58 mm Hg 09/18/2024 Height 63 in 09/18/2024 Blood pressure systolic 132 mm Hg 09/18/2024 Weight 153 lbs 09/18/2024 BMI 27.1 kg/m2 09/18/2024 Encounters Encounter Location Date Provider Diagnosis Storm Gonzalez MD [address] [place] [id number] 10/14/2024 Storm Gonzalez Multiple sclerosis, primary progressive G35 Storm Gonzalez MD [address] [place] [phone] 10/18/2023 Storm Gonzalez Multiple sclerosis, primary progressive G35 ; Palpitation R00.2 ; Mild intermittent asthmatic bronchitis with acute exacerbation J45.21 and Family history of MS (multiple sclerosis) Z82.0 Storm Gonzalez MD [address] [place] [id number] 04/15/2024 Storm Gonzalez Multiple sclerosis, primary progressive G35 Storm Gonzalez MD [address] [place] [id number] 09/05/2024 Storm Gonzalez Phlebitis and thrombophlebitis of unspecified site I80.9 Storm Gonzalez MD [address] [place] [id number] 09/18/2024 Storm Gonzalez Cervical disc diseas e M50.90 Assessments Encounter Date Diagnosis (ICD Code) [...] that she is pretty much the same. 09/05/2024 Phlebitis and thrombophlebitis of unspecified site (ICD-10 - I80.9) pending diagnostic testing 09/18/2024 Cervical disc disease (ICD-10 - M50.90) there was no evidence of any clots in the arm and it seems most likely to be neurogenic. possible her ms is in the spine. at this point she would not do any treatment and is actually not bothering her very much and she is relieved that is not a clot 10/18/2023 Mild intermittent asthmatic bronchitis with acute [...] 09/05/2024 US ARM RT VENOUS DOPPLER 09/05/2024 Complete Blood Count Auto Diff 5 Comprehensive Met. Panel 10/14/2024 Comprehensive [place]. Panel Fast 5 Lipid Panel 10/14/2024 ECG 30 day event monitor 06/29/2022 FL barium swallow modified 10/16/2022 UA ClnCatch+Micro w/rflx Cult 10/14/2024 Future Test Test Name Order Date BONE DENSITY DEXA 01/26/2020 MAMMOGRAM DIGITAL BILATERAL SCREEN 01/25 Next Appt Details Provider Name:Storm Rojas ier, 11/04/2024 02:30:00 PM, [address] [place] [address], [address], [place], [place], [phone], Insurance Providers Payer Name Payer Address Payer Phone Subscriber Number Group Number Insured Name Patient Relationship to Insured Coverage Start Date Coverage End Date MEDICARE NHIC [address] [place] [address] [id number] [place], Dana Self - patient is the insured [employer] [address] [place], [place] [phone] [id number] Dana Murphy Self - patient is the insured Medical (General) History Medical History History ICD Code colonoscopy 2008 due in 10; colonoscopy done by w/Dr. Davis on 01/18/18 - no further testing indicated per Dr. Davis discussed the need for the n ew shingrix is going to wait for the new covd vaccine
--- OUTSIDE RECORDS SUMMARY | 2024-10-14 12:22 | XMS_ITS | Patient Health Record ---
Author Organization [facility] Address [address] [place] [phone] Care Team Providers Care Slitting And Shipping Supervisor Name Role Phone Storm Gonzalez MD Primary Care Provider Bridger Kumar Unavailable [phone] Reason For Referral No Information Medications Medication [...] Problem Status W/U Status Risk Notes Problem 625414097 Encounter for screening for malignant neoplasm of colon (Z12.11) Active confirmed Problem 138182054218664 Pre-procedural examination (Z01.818) Active confirmed Plan Of Treatment Future Test Test Name Order Date COLONOSCOPY 12/14/2017 Insurance Providers Payer Name Payer Address Payer Phone Subscriber Number Group Number Insured Name Patient Relationship to Insured Coverage Start Date Coverage End Date MEDICARE OF [place] [address] [place] [address] [id number] DANIELA LAWRENCE Self - patient is the insured [employer] ATT[employer] CLAIMS [address] [place] [address] [id number] DANIELA LAWRENCE Self - patient is the insured Medical (General) History Medical History History ICD Code Denies ME,DM,CVA,Lung disease,renal dise ase Multiple sclerosis Neg. colonoscopy in 07/2007 Depression Surgical History Surgery Date(Month/Year) Tonsillectomy
--- OUTSIDE RECORDS SUMMARY | 2024-10-14 12:22 | XMS_ITS | Clinical Summary ---
Author Organization [facility] Address [address] [place] [address] Phone Care Team Providers Care Fast Food Supervisor Name Role Phone Unavailable Primary Care Provider [...] It is not the complete legal health record.[facility]
== END 2024-10-14 11:25 | disposition home or self-care (01) ==
LOC: HO.LNP 11:24
PROVIDERS: Visit Provider Internal Medicine
DX: G35 Multiple sclerosis (principal); Z13.6 Encounter for screening for cardiovascular disorders
CPT/HCPCS: 80053; 80061; 85025

== ENCOUNTER 2024-10-31 13:40 | Outpatient (REF) | payer MEDICARE, SELFPAY ==
--- OUTSIDE RECORDS SUMMARY | 2024-04-15 10:00 | XMS_ITS ---
Author Organization Storm Gonzalez MD Address [address] [place] [phone] Care Team Providers Care Manipulative Therapy Specialist Name Role Phone Storm Gonzalez Primary Care Provider Allergies No Known Allergies REASON FOR VISIT 6 month Medications Medication SIG (Take, Route, Frequency, Duration) Notes Start Date End Date Status FLUoxetine HCl 20 MG TAKE 1 CAPSULE BY M OUTH EVERY DAY IN THE MORNING for 90 Active Ibuprofen 800 MG 1 tablet with food o r milk Orally Two times a day for 30 days 10/30/2016 Not-Taking Ventolin HFA 108 (90 Base) MCG/ACT INHALE 1 PUFF INTO THE LUNGS EVERY 4 HOURS NEEDED FOR 30 DAYS Active Vital Signs Blood pressure systolic 124 mm Hg 04/15/19 25 Blood pressure diastolic 58 mm Hg 025 Height 63 in 04/15/2024 Weight 154 lbs 04/15/2024 BMI 27.28 kg/m2 04/15/2024 Encounters Encounter Location Date Provider Diagnosis Storm Gonzalez MD [address] [place] [phone] 04/15/2024 Storm Gonzalez Multiple sclerosis, primary progressive G35 Assessments Encounter Date Diagnosis (ICD Code) Assessment Notes Treatment Notes Treatment Clinical Notes Section Notes 04/15/2024 Multiple sclerosis, primary progressive (ICD-10 - G35) ms is doing okay. is going to get repeat mri in april. feels that she is pretty much the same. Plan Of Treatment Treatment Notes Assessment Notes Multiple sclerosis, primary progressive ms is doing okay. is going to get repeat mri in april. feels that she is pretty much the same. Next Appt Details Provider Name:Storm Rojas ier, 04/30/2025 10:45:00 AM, [address], [address], [place], [place], [phone], Provider Name:Storm Rojas ier, 10/29/2025 07:15:00 AM, [address], [address], [place], [place], [phone], Provider Name:Storm Rojas ier, 11/05/2025 11:00:00 AM, [address], [address], [place], [place], [phone], Progress Notes * Dana MURPHY ADOB: 0 (73 yo F)Acc No.[id number]:04/15/2024 Progress Notes Patient: Dana WADE Provider: Rosa Gonzalez MD :1950 A ge:73 Y S ex:Female Date:04/15/2024 Address:[address] [place] [address], [id number] Subjective: * Chief Complaints: * 6 month * HPI: S ymptom(s): patient is a 73 yo female here for 6 moth foloow up visit, never heard wheezing. * ROS: G eneral/Constitutional: Denies C hills. D enies F atigue. D enies F ever. D enies H eadache. E NT: Patient denies d ecreased sense of smell, any loss of taste, sore throat. D enies S ore throat. R espiratory: Denies C ough. A dmits S hortness of breath at rest. D enies S hortness of breath with exertion. G astrointestinal: Denies D iarrhea. D enies N ausea. M usculoskeletal: Patient denies m uscle aches. P eripheral Vascular: Patient denies r ed and blue toes. * Medical History: * Surgical History: * Hospitalization/Major Diagno stic Procedure: * Medications: T akingVentolin HFA 108 (90 Base) MCG/ACT Aerosol Solution INHALE 1 PUFF INTO THE LUNGS EVERY 4 HOURS NEEDED FOR 30 DAYS FLUoxetine HCl 20 MG Capsule TAKE 1 CAPSULE BY MOUTH EVERY DAY IN THE MORNING Taking Ventolin HFA 108 (90 Base) MCG/ACT Aerosol Solution INHALE 1 PUFF INTO THE LUNGS EVERY 4 HOURS NEEDED FOR 30 DAYS Taking FLUoxetine HCl 20 MG Capsule TAKE 1 CAPSULE BY MOUTH EVERY DAY IN THE MORNING Not-Taking/PRNIbuprofen 800 MG Tablet 1 tablet with food or milk Orally Two times a day Medication List reviewed and reconciled with the patientNot-Taking/PRN Ibuprofen 800 MG Tablet 1 tablet with food or milk Orally Two times a day Medication List reviewed and reconciled with the patient * Allergies: N .K.D.A.yes[Allergies Verified] Objective: * Vitals: H t: 63, Wt: 154, BMI:27.28, BP:124/58, Wt-k.85. * Examination: G eneral Examination: GENERAL APPEARANCE: a lert, well hydrated, in no distress.? HEAD: n ormocephalic. SKIN: g ood turgor. HEART: n o murmurs, rubs, gallops, regular rate and rhythm.? LUNGS: n o wheezes, rales, rhonchi, good air movement, clear to auscultation bilaterally. Assessment: * Assessment: 1. M ultiple sclerosis, primary progressive - G35 (Primary) Plan: * Treatment: * Procedure Codes: * * Sign off status: Completed true * Provider: Rosa Gonzalez MD Date: 0 04/15/2024 Generated for Nelson moura/Dane/Gabeitting on: 0 10/31/2024 04:32 PM EDT History and Physical Notes * HPI (History of Present Illness) Category Sub-Category Detail Notes Category Not es Symptom(s) patient is a 73 yo female here for 6 moth foloow up visit, never heard wheezing. Examination Category Sub-Category Detail Notes Category Not es General Examination GENERAL APPEARANCE: alert, w ell hydrated, in no distress HEAD: normocephalic HEART: no murmurs, rubs, ga llops, regular rate and rhythm LUNGS: no wheezes, rales, r honchi, good air movement, clear to auscultation bilaterally SKIN: good turgor
--- OUTSIDE RECORDS SUMMARY | 2024-09-05 07:00 | XMS_ITS ---
Author Organization Storm Gonzalez MD Address [address] [place] [phone] Care Team Providers Care Powerhouse Mechanic Name Role Phone Storm Gonzalez Primary Care Provider Allergies No Known Allergies REASON FOR VISIT right arm swollen, warm touch off and on x 5 months, Accompanied by Medications Medication SIG (Take, Route, Frequency, Duration) Notes Start Date End Date Status Ibuprofen 800 MG 1 tablet with food o r milk Orally Two times a day for 30 days 10/30/2016 Not-Taking FLUoxetine HCl 20 MG TAKE 1 CAPSULE BY M OUTH EVERY DAY IN THE MORNING for 90 Active Ventolin HFA 108 (90 Base) MCG/ACT INHALE 1 PUFF INTO THE LUNGS EVERY 4 HOURS NEEDED FOR 30 DAYS Active Vital Signs Blood pressure systolic 94 mm Hg 09/06/19 25 Blood pressure diastolic 66 mm Hg 025 Height 63 in 09/05/2024 Weight 153 lbs 09/05/2024 BMI 27.1 kg/m2 09/05/2024 Encounters Encounter Location Date Provider Diagnosis Storm Gonzalez MD [address] [place] [phone] 09/05/2024 Storm Gonzalez Phlebitis and thrombophlebitis of unspecified site I80.9 Assessments Encounter Date Diagnosis (ICD Code) Assessment Notes Treatment Notes Treatment Clinical Notes Section Notes 09/05/2024 Phlebitis and thrombophlebitis of unspecified site (ICD-10 - I80.9) pending diagnostic testing Plan Of Treatment Treatment Notes Assessment Notes Phlebitis and thrombophlebitis of unspec ified site pending diagnostic testing Pending Test Test Name Order Date US SOFT TISSUE 09/05/2024 US ARM RT VENOUS DOPPLER 09/05/2024 Next Appt Details Follow Up: 2 Weeks, Reason: Provider Name:Storm Rojas ier, 04/30/2025 10:45:00 AM, [address], [address], [place], [place], [phone], Provider Name:Storm Rojas ier, 10/29/2025 07:15:00 AM, [address] [place] [address] Drive, [address], [place], [place], [phone], Provider Name:Storm Rojas ier, 11/05/2025 11:00:00 AM, [address] [place] [address], Suite [facility], [place], [place], [phone], Progress Notes * MELINDA Dana ADOB: 0 (74 yo F)Acc No.[id number]:09/05/2024 Progress Notes Patient: Jeremy NAVASDana A Provider: Rosa Gonzalez MD :1950 A ge:74 Y S ex:Female Date:09/05/2024 Address:[address] [place] [address], [id number] Subjective: * Chief Complaints: * R ight arm swollen, warm touch off and on x 5 monthsAccompanied by * HPI: S ymptom(s): patient is a 74 yo female here with complaint of rt arm swollen off and on for 5 months. hurting up int shoulder. trouble using arm. can't lift fork to mouth and can't brush teeth. * ROS: G eneral/Constitutional: Denies C hills. D enies F atigue. D enies F ever. D enies H eadache. E NT: Denies S ore throat. R espiratory: Denies C ough. D enies S hortness of breath at rest. D enies S hortness of breath with exertion. G astrointestinal: Denies D iarrhea. D enies N ausea. * Medical History: * Surgical History: * [...] Objective: * Vitals: H t: 63, Wt: 153, BMI:27.1, BP:94/66, Repeat BP:120/76, Wt-k.4. * Examination: G eneral Examination: GENERAL APPEARANCE: a lert, well hydrated, in no distress.? EXTREMITIES: a bnormal with tenderness over the arm in the forearm with swelling over the the forearm. Assessment: * Assessment: 1. P hlebitis and thrombophlebitis of unspecified site - I80.9 (Primary) Plan: * Treatment: ?Imaging: US ARM RT VENOUS DOPPLER Notes: pending diagnostic testing?? * Procedure Codes: * Follow Up: 2 Weeks * * Sign off status: Completed true * Provider: Rosa Gonzalez MD Date: 0 09/05/2024 Generated for Nelson moura/Dane/Gabeitting on: 0 10/31/2024 04:32 PM EDT History and Physical Notes * HPI (History of Present Illness) Category Sub-Category Detail Notes Category Not es Symptom(s) patient is a 74 yo female here with complaint of rt arm swollen off and on for 5 months. hurting up int shoulder. trouble using arm. can't lift fork to mouth and can't brush teeth Examination Category Sub-Category Detail Notes Category Not es General Examination GENERAL APPEARANCE: alert, w ell hydrated, in no distress EXTREMITIES: abnormal with tender ness over the arm in the forearm with swelling over the the forearm
--- OUTSIDE RECORDS SUMMARY | 2024-09-18 07:30 | XMS_ITS ---
Author Organization Storm Gonzalez MD Address [address] [place] [phone] Care Team Providers Care Trapper Animal Name Role Phone Storm Gonzalez Primary Care Provider Allergies No Known Allergies REASON FOR VISIT 2 week, Accompanied by Medications Medication SIG (Take, Route, Frequency, Duration) Notes Start Date End Date Status Ventolin HFA 108 (90 Base) MCG/ACT INHALE 1 PUFF INTO THE LUNGS EVERY 4 HOURS NEEDED FOR 30 DAYS Active FLUoxetine HCl 20 MG TAKE 1 CAPSULE BY M OUTH EVERY DAY IN THE MORNING for 90 Active Ibuprofen 800 MG 1 tablet with food o r milk Orally Two times a day for 30 days 10/30/2016 Not-Taking Problems Problem Type SNOMED Code ICD Code Onset Dates Problem Status W/U Status Risk Notes Problem Cervical disc disease (245959969) Cervical disc disease (M50.90) Active confirmed Vital Signs Blood pressure systolic 132 mm Hg 09/19/19 25 Blood pressure diastolic 58 mm Hg 025 Height 63 in 09/18/2024 Weight 153 lbs 09/18/2024 BMI 27.1 kg/m2 09/18/2024 Encounters Encounter Location Date Provider Diagnosis Storm Gonzalez MD [address] [place] [address] [place] [id number] 09/18/2024 Storm Gonzalez Cervical disc disease M50.90 Assessments Encounter Date Diagnosis (ICD Code) Assessment Notes Treatment Notes Treatment Clinical Notes Section Notes 09/18/2024 Cervical disc disease (ICD-10 - M50.90) there was no evidence of any clots in the arm and it seems most likely to be neurogenic. possible her ms is in the spine. at this point she would not do any treatment and is actually not bothering her very much and she is relieved that is not a clot Plan Of Treatment Treatment Notes Assessment Notes Cervical disc disease there was no evide nce of any clots in the arm and it seems most likely to be neurogenic. possible her ms is in the spine. at this point she would not do any treatment and is actually not bothering her very much and she is relieved that is not a clot Next Appt Details Provider Name:Storm Rojas ier, 04/30/2025 10:45:00 AM, [address] [place] [address], Suite [facility], [place], [place], [phone], Provider Name:Storm P Crystal long, 10/29/2025 07:15:00 AM, [address] [place] [address], Suite [facility], [place], [place], [phone], Provider Name:Storm johnsonr, 11/05/2025 11:00:00 AM, [address] [place] [address], Suite [facility], [place], [place], [phone], Progress Notes * Dana MURPHY ADOB: 0 (74 yo F)Acc No.[id number]:09/18/2024 Progress Notes Patient: Dana WADE Provider: Rosa Gonzalez MD :1950 A ge:74 Y S ex:Female Date:09/18/2024 Address:[address] [place] [address], [id number] Subjective: * Chief Complaints: * 2 weekAccompanied by * HPI: S ymptom(s): patient is a 74 yo female here for 2 week follow up visit. * ROS: G eneral/Constitutional: Denies C hills. [...] Vitals: H t: 63, Wt: 153, BMI:27.1, BP:132/58, Wt-k.4. * Examination: G eneral Examination: GENERAL APPEARANCE: a lert, well hydrated, in no distress.? HEAD: n ormocephalic. NEUROLOGIC: w ith good reflexes in rt arm. Assessment: * Assessment: 1. C ervical disc disease - M50.90 (Primary) Plan: * Treatment: * Procedure Codes: * * Sign off status: Completed true * Provider: Rosa Gonzalez MD Date: 0 09/18/2024 Generated for Nelson moura/Dane/Grabiel on: 0 10/31/2024 04:32 PM EDT History and Physical Notes * HPI (History of Present Illness) Category Sub-Category Detail Notes Category Not es Symptom(s) patient is a 74 yo female here for 2 week follow up visit Examination Category Sub-Category Detail Notes Category Not es General Examination GENERAL APPEARANCE: alert, w ell hydrated, in no distress HEAD: normocephalic NEUROLOGIC: with good reflexes i n rt arm
--- OUTSIDE RECORDS SUMMARY | 2024-10-14 03:45 | XMS_ITS ---
Author Organization Storm Gonzalez MD Address [address] [place], [place] [id number] Care Team Providers Care Group Fitness Instructor Name Role Phone Storm Gonzalez Primary Care Provider Results Component Value Reference Range Notes Complete Blood Count Auto Di ff Reviewed date:10/14/2024 04:41:51 PM Interpretation: Performing Lab:[facility], [address] [place] [phone] Notes/Report: White Blood Count 5.3 4.8-10.8 X10*3/uL Red Blood Count 4.40 4.20-5.50 X10*6/uL Hemoglobin 13.4 12.0-16.0 g/dl Hematocrit 40.6 37.0-47.0 % Mean Corpuscular Volume 92.3 80.0-98.0 fL Mean Corpuscular Hemoglobin 30.5 27.0-33.0 pg Mean Corpuscular HGB Conc 33.0 31.0-35.0 g/dl Red Cell Distribution Width 14.4 11.0-16.0 % Platelet Count 273 160-400 X10*3/uL Mean Platelet Volume 11.5 9.4-12.3 fL Neutrophils Percent Auto 51.4 45-73 % Imm Gran Pct Auto 0.4 0.0-0.4 % Lymphocytes Percent Auto 33.3 20-40 % Monocytes Percent Auto 11.6 2-11 % Eosinophils Percent Auto 2.6 0-4 % Basophils Percent Auto 0.7 0-2 % NRBC Pct Auto 0.0 0.0-0.2 /100WBC Neutrophils Absolute Auto 2.7 2.0-8.3 x10*3/u L Imm Gran Abs Auto 0.02 0.00-0.03 X10*3/uL Lymphocytes Absolute Auto 1.8 1.2-4.9 X10*3/u L Monocytes Absolute Auto 0.6 0.1-1.2 X10*3/uL Eosinophils Absolute Auto 0.1 0.0-0.4 X10*3/u L Basophils Absolute Auto 0.0 0.0-0.2 X10*3/uL NRBC Abs Auto 0.000 0.0-0.012 X10*3/uL Lipid Panel Reviewed date:10/14/2024 04:40:14 PM Interpretation: Performing Lab:[facility], [address] [place] [phone] Notes/Report: Triglycerides 121 <150 mg/dL Desirable Triglyceride: less than 150 mg/dL Borderline High Triglyceride 150-199 mg/dL High Triglyceride: 200-499 mg/dL Very High Triglyceride: greater than or equal to 5OO mg/dL Cholesterol 218 <200 mg/dL Desirable Cholesterol: less than 200 mg/dL Borderline High Cholesterol: 200-239 mg/dL High Cholesterol: greater than 239 mg/dL LDL Cholesterol Calculated 130 <100 mg/dL Desirable LDL: less than 100 mg/dL Near Optimal/Above Optimal LDL: 110-129 mg/dL Borderline High LDL: 130-159 mg/dL High LDL: 160-189 mg/dL Very High LDL: greater than or equal to 190 mg/dL HDL Cholesterol 64 >40 mg/dL Desirable HDL: greater than 40 mg/dL Note: This HDL assay may give artificially low results in patients with liver disease. REASON FOR VISIT yearly fasting labs Encounters Encounter Location Date Provider Diagnosis Storm Gonzalez MD [address] [place], [place] [phone] 10/14/2024 Storm Gonzalez Multiple sclerosis, primary progressive G35 Assessments Encounter Date Diagnosis (ICD Code) Assessment Notes Treatment Notes Treatment Clinical Notes Section Notes 10/14/2024 Multiple sclerosis, primary progressive (ICD-10 - G35) Plan Of Treatment Pending Test Test Name Order Date Comprehensive [place]. Panel Fast UA ClnCatch+Micro w/rflx Cult 10/14/2024 Next Appt Details Provider Name:Storm Rojas ier, 04/30/2025 10:45:00 AM, [address], [address], [place], [place], [phone], Provider Name:Storm Rojas ier, 10/29/2025 07:15:00 AM, [address], [address], [place], [phone], Provider Name:Storm Rojas ier, 11/05/2025 11:00:00 AM, [address], [address], [place], [place], [phone], Progress Notes * Dana MURPHY ADOB: 0 (74 yo F)Acc No.[id number]:10/14/2024 Progress Note Patient: Dana WADE Provider: Rosa Gonzalez MD :1950 A ge:74 Y S ex:Female Date:10/14/2024 Address:[address] [place], [place] [phone] Subjective: * Chief Complaints: * 1 . Yearly fasting labs. * Medical History: Objective: * Vitals: Assessment: * Assessment: 1. M ultiple sclerosis, primary progressive - G35 (Primary) Plan: * Treatment: * Procedure Codes: 3 6415 VENIPUNCT, ROUTINE* * * The named appointment provid er may or may not be the originator of this progress note, and it is not deemed complete until electronically signed by the appointment provider. Sign off status: Pending * Provider: Rosa Gonzalez MD Date: 10/14/2024 Generated for Nelson moura/Dane/eTransmitting on: 10/31/2024 04:32 PM EDT
--- OUTSIDE RECORDS SUMMARY | 2024-10-31 07:00 | XMS_ITS ---
Author Organization Storm Gonzalez MD Address [address] [place], [place] [id number] Care Team Providers Care Web Content Executive Name Role Phone Storm Gonzalez Primary Care Provider Allergies No Known Allergies Results Component Value Reference Range Notes UA ClnCatch+Micro w/rflx Cul t (Not yet reviewed by provider) Interpretation: Performing Lab:[facility], [address] [place] [id number] Notes/Report: [id number] Urine, Clean Catch Color Urine Yellow Appearance Urine Clear PH 8.5 5.0-9.0 Glucose Urine UA Negative Negative mg/dL Urine Blood Negative Negative Specific [place] - Urine 1.015 1.005-1.025 Urine Protein Negative Neg-Trace mg/dL Urine Ketones Negative Negative mg/dL Nitrite Urine Negative Negative Leukocyte Esterase Urine Negative Negative RBC Urine 0-2 0-2 /HPF WBC Urine 0-5 0-5 /HPF Squamous Epithelial Cell Urine 0-2 0-2 /HPF Bacteria Urine None Seen None Seen Hyaline Casts Urine 0-2 0-2 /LPF Reason For Referral Reason right wrist pain Diagnosis 1 Pain in right wrist (M25.531) Referral Organization Storm Gonzalez MD Referring Provider First Name Storm Referring Provider Last Name Lisa Referring Provider Speciality Internal M edicine Referred Provider [facility] Referred Provider Specialty Physical The rapist General Notes Marilu Wright 0 10/31/2024 11:48:22 AM >patient will be making her own appt, orders given to patient and faxed Referral Priority Routine REASON FOR VISIT commp visit Medications Medication SIG (Take, Route, Frequency, Duration) [...] Vaccine Route Administration Date Status Comme nts Influenza High Dose IM Intramuscular 10/31/2024 Administer ed Social History Tobacco Use: Social History Observation [...] Signs Blood pressure systolic 132 mm Hg 11/01/19 25 Blood pressure diastolic 60 mm Hg 025 Height 63 in 10/31/2024 Weight 152 lbs 10/31/2024 BMI 26.92 kg/m2 10/31/2024 Encounters Encounter Location Date Provider Diagnosis Storm Gonzalez MD [address] [place] [address] [address] [place], [place] [phone] 10/31/2024 Storm Gonzalez Encounter for administration of vaccine Z23 ; Annual physical exam Z00.00 ; Wrist pain, right M25.531 ; Multiple sclerosis, primary progressive G35 and Mild intermittent asthmatic bronchitis with acute exacerbation J45.21 Assessments Encounter Date Diagnosis (ICD Code) Assessment Notes Treatment Notes Treatment Clinical Notes Section Notes 10/31/2024 Encounter for administration of vaccine (ICD-10 - Z23) HD flu vaccine administered 10/31/2024 Annual physical exam (ICD-10 - Z00.00) labs reviewed and discussed with patient 10/31/2024 Wrist pain, right (ICD-10 - M25.531) referral to pt at [facility] 10/31/2024 Multiple sclerosis, primary progressive (ICD-10 - G35) is being followed by neurology 10/31/2024 Mild intermittent asthmatic bronchitis with acute exacerbation (ICD-10 - J45.21) stable, will continue current regiment Plan Of Treatment Medication Medication Name Sig Start Date Stop Date Notes Ventolin HFA 108 (90 Base) MCG/ACT INHALE 1 PUFF INTO THE LUNGS EVERY 4 HOURS NEEDED FOR 30 DAYS Treatment Notes Assessment Notes Encounter for administration of vaccine HD flu vaccine administered Annual physical exam labs reviewed and d iscussed with patient Wrist pain, right referral to pt at C Multiple sclerosis, primary progressive is being followed by neurology Mild intermittent asthmatic bronchitis with acute exacerbation stable, will continue current regiment Pending Test Test Name Order Date UA ClnCatch+Micro w/rflx Cult 10/31/2024 Referrals Referral Date Details 10/31/2024 10/31/2024, right wr ist pain, P.T[facility] Next Appt Details Follow Up: 6 Months, Reason: Provider Name:Storm johnsonr, 04/30/2025 10:45:00 AM, [address] [place] [address], Suite [facility], [place], [place], [phone], Provider Name:Storm Rojas ier, 10/29/2025 07:15:00 AM, [address] [place] [address], Suite [facility], [place], [place], [phone], Provider Name:Storm Rojas ier, 11/05/2025 11:00:00 AM, [address] [place] [address], Suite [facility], [place], [place], [phone], Progress Notes * Dana MURPHY ADOB: 0 (74 yo F)Acc No.[id number]:10/31/2024 Patient: Jeremy MELINDAErika BEAUCHAMPis A Provider: Rosa Gonzalez MD :1950 A ge:74 Y S ex:Female Date:10/31/2024 Address:[address] [place] [address], [id number] Subjective: * Chief Complaints: * 1 . Commp visit. * HPI: D epression Screening: PHQ-9 L ittle interest or pleasure in doing things S everal days, F eeling down, depressed, or hopeless S everal days, T rouble falling or staying asleep, or sleeping too much S everal days, F eeling tired or having little energy S everal days, P oor appetite or overeating N ot at all, F eeling bad about yourself or that you are a failure, or have let yourself or your family down N ot at all, T rouble concentrating on things, such as reading the newspaper or watching television N ot at all, M oving or speaking so slowly that other people could have noticed; or the opposite, being so fidgety or restless that you have been moving around a lot more than usual N ot at all, T houghts that you would be better off or of hurting yourself in some way N ot at all, T otal Score 4 , I nterpretation M inimal Depression. C ommunication Needs: Communication Needs D oes the patient have a hearing impairment N o, D oes the patient have a vision impairment? Y es, I f yes, what is the vision impairment? G lasses, D oes the patient have a cognition impairment? N o. F all Risk: History H ave you had any falls with injury in the past year? N o, H ave you had two or more falls in the past year? N o. S MARCELINO Questions: SDOH Questions I n the past year have you been worried about losing housing? N o, I n the past year have you or any family members you live with been unable to get any of the following when it was really needed? Check all that apply: N one. S ymptom(s): lpatient is a 74 yo female here for visit with review of recent labs and follow up of chronic issues, left arm still painful. has trouble lifting her arm started at wrist and moved to her elbow and into shoulder. * ROS: G eneral/Constitutional: Change in appetite d enies. C hills d enies. F ever d enies. O phthalmologic: Blurred vision d enies. D ischarge d enies. P ain d enies. E NT: Decreased hearing d enies. S ore throat d enies.?Swollen glands d enies. E ndocrine: Cold intolerance d enies. E xcessive thirst d enies. H eat intolerance d enies. W eight loss d enies. R espiratory: Cough d enies. S hortness of breath at rest d enies. S hortness of breath with exertion d enies. W heezing d enies. C ardiovascular: Chest pain at rest d enies. C hest pain with exertion?denies. I rregular heartbeat d enies. S hortness of breath d enies. ? G astrointestinal: Abdominal pain d enies. C hange in bowel habits d enies. D iarrhea d enies. N ausea d enies. R ectal bleeding d enies. V omiting d enies . G enitourinary: Blood in urine d enies. D ifficulty urinating d enies. F requent urination d enies. U rinary incontinence D enies. M usculoskeletal: Painful joints d enies. W eakness d enies. ? S kin: Dry skin d enies. I tching d enies. D enies?Mole(s), changes in moles, new moles or any lesions of concern. D enies P hotosensitivity. R rafiq d enies. N eurologic: Dizziness d enies. F ainting d enies. H eadache?denies. * Medical History: c olonoscopy 2007 due in 10; colonoscopy done by w/Dr. Davis on 01/18/18 - no further testing indicated per Dr. Davis, Discussed the need for the new shingrix is going to wait for the new covd vaccine. * Family History: F ather: 90 yrs. M other: 76 yrs. 1 brother(s) , 2 sister(s) . 1 daughter(s) . . Mother-MS Father-Organ Failure, Denies mental health/substance abuse family history, Denies mental health/substance abuse family history, No pertinent family medical history, No pertinent family medical history, Denies mental health/substance abuse family history. * Social History: T obacco Use: T obacco Use/Smoking P atient is a n onsmoker, A dditional Findings: Tobacco Non-User C urrent non-smoker, currently using no form of tobacco. D rugs/Alcohol: A lcohol Screen D id you have a drink containing alcohol in the past year? N o, P oints 0 , I nterpretation N egative. M iscellaneous: C affeine: yes, frequency:, 1-2 cups per day. Children: yes. Community involvements: no. Exercise: no, not really doing much since the MS diagnosis. Home smoke detector use: yes. Housing: owning. Living with: spouse. Marital status: . Occupation: Retired. Pets: none. * Medications: T aking Ventolin HFA 108 (90 Base) MCG/ACT Aerosol Solution INHALE 1 PUFF INTO THE LUNGS EVERY 4 HOURS NEEDED FOR 30 DAYS , Taking FLUoxetine HCl 20 MG Capsule TAKE 1 CAPSULE BY MOUTH EVERY DAY IN THE MORNING , Not-Taking/PRN Ibuprofen 800 MG Tablet 1 tablet with food or milk Orally Two times a day , Medication List reviewed and reconciled with the patient * Allergies: N .K.D.A. Objective: * Vitals: H t: 63, Wt: 152, BMI:26.92, BP:132/60, Wt-k.95. * P ast Orders: L ab:Complete Blood Count Auto Diff (Order Date - 10/14/2024) (Collection Date & Time - 10/14/2024 07:45 AM) Value Reference Range White Blood Count 5.3 4.8-10.8 - X10*3/uL Red Blood Count 4.40 4.20-5.50 - X10*6/uL Hemoglobin 13.4 12.0-16.0 - g/dl Hematocrit 40.6 37.0-47.0 - % Mean Corpuscular Volume 92.3 80.0-98.0 - fL Mean Corpuscular Hemoglobin 30.5 27.0-33.0 - pg Mean Corpuscular HGB Conc 33.0 31.0-35.0 - g/ dl Red Cell Distribution Width 14.4 11.0-16.0 - % Platelet Count 273 160-400 - X10*3/uL Mean Platelet Volume 11.5 9.4-12.3 - fL Neutrophils Percent Auto 51.4 45-73 - % Imm Gran Pct Auto 0.4 0.0-0.4 - % Lymphocytes Percent Auto 33.3 20-40 - % Monocytes Percent Auto 11.6 H 2-11 - % Eosinophils Percent Auto 2.6 0-4 - % Basophils Percent Auto 0.7 0-2 - % NRBC Pct Auto 0.0 0.0-0.2 - /100WBC Neutrophils Absolute Auto 2.7 2.0-8.3 - x10* 3/uL Imm Gran Abs Auto 0.02 0.00-0.03 - X10*3/uL Lymphocytes Absolute Auto 1.8 1.2-4.9 - X10* 3/uL Monocytes Absolute Auto 0.6 0.1-1.2 - X10*3/ uL Eosinophils Absolute Auto 0.1 0.0-0.4 - X10* 3/uL Basophils Absolute Auto 0.0 0.0-0.2 - X10*3/ uL NRBC Abs Auto 0.000 0.0-0.012 - X10*3/uL L ab:Lipid Panel (Order Date - 10/14/2024) (Collection Date & Time - 10/14/2024 07:45 AM) Value Reference Range Triglycerides 121 <150 - mg/dL Cholesterol 218 H <200 - mg/dL LDL Cholesterol Calculated 130 H <100 - mg/dL HDL Cholesterol 64 >40 - mg/dL L ab:Comprehensive Met. Panel (Order Date - 10/14/2024) (Collection Date & Time - 10/14/2024 07:45 AM) Value Reference Range Sodium 139 135-145 - mmol/L Bilirubin Total 0.4 0.0-1.0 - mg/dL Aspartate Amino Transferase 29 5-31 - U/L Alanine Aminotransferase 21 0-31 - U/L Total Protein 6.5 6.5-8.0 - g/dL Albumin Level 4.0 3.5-5.0 - g/dL Alkaline Phosphatase 75 39-117 - U/L Potassium 4.2 3.3-5.1 - mmol/L Chloride 106 96-108 - mmol/L Carbon Dioxide 27 22-29 - mmol/L Anion Gap 10 L 12-20 - Blood Urea Nitrogen 12 9-16 - mg/dL Creatinine 0.69 0.5-1.4 - mg/dL Estimated Glomerular Filt Rate > 60 - Glucose Random 80 60-115 - mg/dL Calcium 9.1 8.4-10.2 - mg/dL * Examination: G eneral Examination: GENERAL APPEARANCE: w ell developed, well nourished, in no acute distress. HEAD: n ormocephalic, atraumatic. EYES: p upils equal, round, reactive to light and accommodation, sclera non-icteric. EARS: n ormal. ORAL CAVITY: m ucosa moist. THROAT: c lear. NECK/THYROID: n nicko supple, full range of motion, no cervical lymphadenopathy, no bruits. SKIN: w arm and dry, no suspicious lesions. HEART: r egular rate and rhythm, S1, S2 normal, no murmurs.? LUNGS: c lear to auscultation bilaterally. BREASTS: d eclined. ABDOMEN: s oft, nontender, nondistended, bowel sounds present, normal, no organomegaly , no masses palpable. RECTAL EXAM: d eclined. FEMALE GENITOURINARY: d eclined. EXTREMITIES: n o clubbing, cyanosis, or edema. NEUROLOGIC: n onfocal, motor strength normal upper and lower extremities, sensory exam intact. Assessment: * Assessment: 1. A nnual physical exam - Z00.00 (Primary) 2 . E ncounter for administration of vaccine - Z23 3 . W rist pain, right - M25.531 4 . M ultiple sclerosis, primary progressive - G35 5 . M ild intermittent asthmatic bronchitis with acute exacerbation - J45.21 Plan: * Treatment: 2. E ncounter for administration of vaccine Notes: HD flu vaccine administered 3. W rist pain, right Notes: referral to pt at [facility] 4. M ultiple sclerosis, primary progressive Notes: is being followed by neurology 5. M ild intermittent asthmatic bronchitis with acute exacerbation Continue Ventolin HFA Aerosol Solution, 108 (90 Base) MCG/ACT, INHALE 1 PUFF INTO THE LUNGS EVERY 4 HOURS NEEDED FOR 30 DAYS. Notes: stable, will continue current regiment 6. O thers Referral To:[facility] Physical Therapist Reason:right wrist pain * Immunizations: Influenza High Dose : 0.5 mL (Dose No:1) (Route: Intramuscular) given by Melany Alamo , Office Staff on Left Deltoid * Procedure Codes: 9 0662 FLU VACC PRSV FREE INC ANTIG, G0008 ADMN FLU VAC NO FEE SCHED SAME DAY * Follow Up: 6 Months * * The named appointment provid er may or may not be the originator of this progress note, and it is not deemed complete until electronically signed by the appointment provider. Sign off status: Pending * Provider: Rosa Gonzalez MD Date: 10/31/2024 Generated for Nelson moura/Dane/eTransmitting on: 0 10/31/2024 04:32 PM EDT History and Physical Notes * HPI (History of Present Illness) Category Sub-Category Detail Notes Category Not es Symptom(s) lpatient is a [age] yo female here for visit with review of recent labs and follow up of chronic issues, left arm still painful. has trouble lifting her arm started at wrist and moved to her elbow and into shoulder Depression Screening PHQ-9 Little inte rest or [...] all Total Score: 4 Interpretation: Minimal Depression SDOH Questions SDOH Questions In the past year have you been worried about losing housing?: No In the past year have you or any family members you live with been unable to get any of the following when it was really needed? Check all that apply:: None Fall Risk History Have you had any falls with injury i n the past year?: No Have you had two or more falls in the year?: No Communication Needs Communication Needs Does the patient have a hearing impairment: No Does the patient have a vision impairmen t?: Yes If yes, what is the vision impairment?: Glasses Does the patient have a cognition impair ment?: No Examination Category Sub-Category Detail Notes Category Not es General Examination GENERAL APPEARANCE: well dev eloped, well nourished, in no acute distress HEAD: normocephalic, atrau matic EYES: pupils equal, round, reactive to light and accommodation, sclera non-icteric EARS: normal THROAT: clear NECK/THYROID: neck supple, full ra nge of motion, no cervical lymphadenopathy, no bruits HEART: regular rate and rhy thm, S1, S2 normal, no murmurs LUNGS: clear to auscultatio n bilaterally ABDOMEN: soft, nontender, non distended, bowel sounds present, normal, no organomegaly , no masses palpable NEUROLOGIC: nonfocal, motor stre ngth normal upper and lower extremities, sensory exam intact SKIN: warm and dry, no jeni picious lesions EXTREMITIES: no clubbing, cyanosi s, or edema BREASTS: declined RECTAL EXAM: declined FEMALE GENITOURINARY: declined ORAL CAVITY: mucosa moist Consultation Request Notes Referral Date Referring Provider Referred Provider Not es 10/31/2024 Storm Gonzalez Jeremy/KENRICK, P.T. right wri st pain
[2024-10-31 14:45] LABS: Appearance Urine Clear; Glucose Urine UA Negative (Negative); PH 8.5 (5.0-9.0); Specific Gravity - Urine 1.015 (1.005-1.025)
--- OUTSIDE RECORDS SUMMARY | 2024-10-31 16:32 | XMS_ITS | Patient Health Record ---
Author Organization Storm Gonzalez MD Address [address] [place], [place] [id number] Care Team Providers Care Programmer Analyst Name Role Phone Storm Gonzalez Primary Care Provider Allergies No Known Allergies Results Component Value Reference Range Notes Complete Blood Count Auto Di ff Reviewed date:10/14/2024 04:41:51 PM Interpretation: Performing Lab:[facility], [address] [place] [phone] Notes/Report: White Blood Count 5.3 4.8-10.8 X10*3/uL [...] Panel Reviewed date:10/14/2024 04:40:14 PM Interpretation: Performing Lab:[facility], [address] [place] [phone] Notes/Report: Triglycerides 121 <150 mg/dL Desirable Triglyceride: [...] liver disease. UA ClnCatch+Micro w/rflx Cul t (Not yet reviewed by provider) Interpretation: Performing Lab:[facility], [address] [place] [phone] Notes/Report: [id number] Urine, Clean Catch Color Urine Yellow Appearance Urine Clear PH 8.5 5.0-9.0 Glucose Urine UA Negative Negative mg/dL Urine Blood Negative Negative Specific [place] - Urine 1.015 1.005-1.025 Urine Protein Negative Neg-Trace mg/dL Urine Ketones Negative Negative mg/dL Nitrite Urine Negative Negative Leukocyte Esterase Urine Negative Negative RBC Urine 0-2 0-2 /HPF WBC Urine 0-5 0-5 /HPF Squamous Epithelial Cell Urine 0-2 0-2 /HPF Bacteria Urine None Seen None Seen Hyaline Casts Urine 0-2 0-2 /LPF MR head/brain wo con Reviewed date:10/02/2024 08:47:00 AM Interpretation:[facility] Radiology called Performing Lab: Notes/Report: [address] [address] Magnetic Resonance Report Signed with Addjulio cesar Patient: Dana Murphy MR#: [id number] 09 : 1950 Acct:[id number] Age/Sex: 73 / F ADM Date: 04/23/24 Loc: HO.MRI Attending Dr: Rahul Hampton MD Ordering Physician: Rahul Hampton MD Date of Service: 04/23/24 Procedure(s): MR head/brain wo con Accession Number(s): [id number] cc: Storm Gonzalez MD; Rahul Hampton MD ADDENDUM ADDENDUM #1 No gross change in the extensive supratentorial demyelinating plaques since August 2021. Electronically signed by: J Luis Murillo MD 10/01/2024 02:28 PM EDT Addendum Dictated By: J Luis Barnard MD [...] in OV> 04/25/24 1158 DD/ 36 TD/TT: 04/23/24 1153 Bi Specialist: [place] [id number] Magnetic Resonance Report Signed with Addenda Patient: Ady Murphy MR#: [id number] 09 : 1950 Acct:[id number] Age/Sex: 73 / F ADM Date: 04/23/24 Loc: HO.MRI Attending Dr: Rahul Hampton MD Ordering Physician: Rahul Hampton MD Date of Service: 04/23/24 Procedure(s): MR head/brain wo con Accession Number(s): [id number] cc: Storm Gonzalez MD; Rahul Hampton MD [...] in OV> 04/25/24 1158 DD/ 36 TD/TT: 04/23/24 115 Bi Specialist: US venous duplex UE RT Reviewed date:09/05/2024 02:07:41 PM Interpretation: Performing Lab: Notes/Report: [address] [address] Ultrasound Report Signed Patient: Dana Murphy MR#: [id number] 09 : 1950 Acct:[id number] Age/Sex: 74 / F ADM Date: 09/05/24 Loc: HO.US Attending Dr: Storm Gonzalez MD Ordering Physician: Storm Gonzalez MD Date of Service: 09/05/24 Procedure(s): US venous duplex UE RT Accession Number(s): [id number] cc: Storm Gonzalez MD EXAMINATION: US TRIPLEX [...] 09/05/24 1258 DD/ 1230 TD/TT: 09/05/24 1245 Bi Specialist: [place] [address] Ultrasound Report Signed Patient: Ady Murphy MR#: [id number] 09 : 1950 Acct:[id number] Age/Sex: 74 / F ADM Date: 09/05/24 Loc: . Attending Dr: Storm Gonzalez MD Ordering Physician: Storm Gonzalez MD Date of Service: 09/05/24 Procedure(s): US chayo ous duplex UE RT Accession Number(s): [id number] cc: Storm Gonzalez MD EXAMINATION: US TRIPLEX [...] 09/05/24 1258 DD/ 1230 TD/TT: 09/05/24 1245 Bi Specialist: Kallie Brunson. Panel Reviewed date:10/14/2024 04:45:11 PM Interpretation: Performing Lab:[facility], [address] [place] [phone] Notes/Report: Sodium 139 135-145 mmol/L Potassium 4.2 [...] Phosphatase 75 39-117 U/L Reason For Referral Reason right wrist pain Diagnosis 1 Pain in right wrist (M25.531) Referral Organization Storm Gonzalez MD Referring Provider First Name Storm Referring Provider Last Name Lisa Referring Provider Speciality Internal M edicine Referred Provider [facility] 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 Problem 49746784 Osteoporosis (M81.0) Active confirmed Problem Cervical disc disease (282640787) Cervical disc disease (M50.90) Active confirmed Problem 98632537 Dysthymia (F34.1) Active confirmed Problem 519511904 Ankle arthritis (M19.079) Active confirmed Problem 863776927 Mild intermitten t asthmatic bronchitis with acute exacerbation (J45.21) Active confirmed Problem 688005465 Family history o f MS (multiple sclerosis) (Z82.0) Active confirmed Problem 319123045 Multiple sclerosis, primary progressive (G35) Active confirmed Vital Signs Blood pressure diastolic 60 mm Hg 10/31/2024 Height 63 in 10/31/2024 Blood pressure systolic 132 mm Hg 10/31/2024 Weight 152 lbs 10/31/2024 BMI 26.92 kg/m2 10/31/2024 Encounters Encounter Location Date Provider Diagnosis Storm Gonzalez MD [address] [place] [id number] 10/14/2024 Storm oGnzalez Multiple sclerosis, primary progressive G35 Storm Gonzalez MD [address] [place] [id number] 10/31/2024 Storm Gonzalez Encounter for administration of vaccine Z23 ; Annual physical exam Z00.00 ; Wrist pain, right M25.531 ; Multiple sclerosis, primary progressive G35 and Mild intermittent asthmatic bronchitis with acute exacerbation J45.21 Storm Gonzalez MD [address] [place] [id number] 04/15/2024 Storm Gonzalez Multiple sclerosis, primary progressive G35 Storm Gonzalez MD [address] [place] [id number] 09/05/2024 Storm Gonzalez Phlebitis and thrombophlebitis of unspecified site I80.9 Storm Gonzalez MD [address] [place] [id number] 09/18/2024 Storm Gonzalez Cervical disc diseas e M50.90 Assessments Encounter Date Diagnosis (ICD Code) Assessment Notes Treatment Notes Treatment Clinical Notes Section Notes 10/14/2024 Multiple sclerosis, primary progressive (ICD-10 - G35) 10/31/2024 Encounter for administration of vaccine (ICD-10 - Z23) HD flu vaccine administered 10/31/2024 Annual physical exam (ICD-10 - Z00.00) labs reviewed and discussed with patient 04/15/2024 Multiple sclerosis, primary progressive (ICD-10 - [...] is relieved that is not a clot 10/31/2024 Wrist pain, right (ICD-10 - M25.531) referral to pt at [facility] 10/31/2024 Multiple sclerosis, primary progressive (ICD-10 - G35) is being followed by neurology 10/31/2024 Mild intermittent asthmatic bronchitis with acute exacerbation (ICD-10 - J45.21) stable, will continue current regiment Plan Of Treatment Pending Test Test Name Order Date Electrocardiogram (EKG) 07/19/2018 Electrocardiogram (EKG) 07/06/2016 Electrocardiogram (EKG) 07/12/2017 Electrocardiogram (EKG) 06/22/2015 BUN 11/21/2016 CREATININE 11/21/2016 BONE DENSITY DEXA 10/08/2020 US SOFT TISSUE 09/05/2024 US ARM RT VENOUS DOPPLER 09/05/2024 Comprehensive [place]. Panel Fast ECG 30 day event monitor 06/29/2022 FL barium swallow modified 10/16/2022 UA ClnCatch+Micro w/rflx Cult 10/14/2024 UA ClnCatch+Micro w/rflx Cult 10/31/2024 Future Test Test Name Order Date BONE DENSITY DEXA 01/26/2020 MAMMOGRAM DIGITAL BILATERAL SCREEN 01/25 Next Appt Details Provider Name:Storm Rojas ier, 04/30/2025 10:45:00 AM, [address], [address], [place], [place], [phone], Provider Name:Storm Rojas ier, 10/29/2025 07:15:00 AM, [address], [address], [place], [place], [phone], Provider Name:Storm Rojas ier, 11/05/2025 11:00:00 AM, [address], [address], [place], [place], [phone], Insurance Providers Payer Name Payer Address Payer Phone Subscriber Number Group Number Insured Name Patient Relationship to Insured Coverage Start Date Coverage End Date MED[employer] [address] [place] [address] [id number] Dana Murphy Self - patient is the insured [facility] [address] [place], [place] [phone] [id number] Dana Murphy Self - patient is the insured Medical (General) History Medical History History ICD Code colonoscopy 2007 due in 10; colonoscopy done by w/Dr. Davis on 01/18/18 - no further testing indicated per Dr. Davis discussed the need for the n ew shingrix is going to wait for the new covd vaccine
--- OUTSIDE RECORDS SUMMARY | 2024-10-31 16:32 | XMS_ITS | Encounter Summary ---
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 Dysphagia, unspecified type (Primary Dx) Social [...] It is not the complete legal health record.[facility]
--- OUTSIDE RECORDS SUMMARY | 2024-10-31 16:32 | XMS_ITS | Clinical Summary ---
Author Organization [facility] Address [address] [place] [address] Phone Care Team Providers Care Reinforcer Name Role Phone Unavailable Primary Care Provider [...] It is not the complete legal health record.[facility]
--- OUTSIDE RECORDS SUMMARY | 2024-10-31 16:32 | XMS_ITS | Patient Health Record ---
Author Organization [facility] Address [address] [place] [phone] Care Team Providers Care Therapist Radiation Name Role Phone Storm Gonzalez MD Primary Care Provider Bridger Kumar Unavailable [phone] Reason For Referral No Information Medications Medication [...] Problem Status W/U Status Risk Notes Problem [id number] Encounter for screening for malignant neoplasm of colon (Z12.11) Active confirmed Problem [id number] Pre-procedural examination (Z01.818) Active confirmed Plan Of Treatment Future Test Test Name Order Date COLONOSCOPY 12/14/2017 Insurance Providers Payer Name Payer Address Payer Phone Subscriber Number Group Number Insured Name Patient Relationship to Insured Coverage Start Date Coverage End Date MEDICARE OF [place] [address] [place] [address] [phone] [id number] DANIELA LAWRENCE Self - patient is the insured [employer] [address] [place] [address] [phone] [id number] DANIELA LAWRENCE Self - patient is the insured Medical (General) History Medical History History ICD Code Denies MT,DM,CVA,Lung disease,renal dise ase Multiple sclerosis Neg. colonoscopy in 07/2007 Depression Surgical History Surgery Date(Month/Year) Tonsillectomy
== END 2024-10-31 13:41 | disposition home or self-care (01) ==
LOC: HO.LNP 13:40
PROVIDERS: Visit Provider Internal Medicine
DX: Z00.00 Encounter for general adult medical examination without abnormal findings (principal)
CPT/HCPCS: 81001

== ENCOUNTER 2024-12-03 11:32 | Outpatient (RCR) | payer MEDICARE, SELFPAY ==
--- NOTE | 2024-11-05 15:02 | MHC.OT.EP ---
[facility] Office [address] [phone] F: [phone] F: [phone] Occupational Therapy Plan of Care Patient Name: Dana Murphy Date of Evaluation: 11/05/24 Diagnosis: R wrist pain Pain Location: Pain Score: 6 Pain Scale Used: Numeric (0 - 10) Aggravating Factors: Alleviating Factors: Assessment: Pt is a 74 yr old R hand dominant female who reports pain in her R radial side of her wrist. She reports the pain was localized in her thumb but recently has began to ache on the radial side of her wrist, and FA recently. She presents today w/ full ROM, but decreased strength (possible thumb subluxation), pain , and decreased use of her R UE. She had a (-) [place], but reports pain w/ palpation of her R CMC J and extensor mass of FA @ the radial side. 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 protection technique s Treatment Plan: Therapeutic Exercise Therapeutic Activity Home Exercise Program Splinting Patient Education Desensitization/Sensory Re-ed Edema Control ADL Training Ultrasound Iontophoresis Paraffin Fluidotherapy MHP Joint Mobilization Soft Tissue Mobilization Kinesiotaping Electronically Signed By: Indira Connolly OTR/L Please Sign and return to therapist. Thank you once again for your referral.
--- NOTE | 2024-12-03 12:06 | MHC.OT.DC ---
[facility] Office [address] [facility] [phone] F: [phone] F: [phone] Occupational Therapy Discharge Note Patient Name: Dana Murphy Provider: Storm Gonzalez Diagnosis: R wrist pain Date of Surgery: Date of Evaluation: 11/05/24 Date of Discharge: Treatments to Date: 5 Cancellations to Date: No Shows to Date: Discharge Status: Achieved Goals Improved Function Discharge Summary: Pt tolerated therapy well today ; she has met her LTGs and is OK to be d/charged from therapy. Pt was a pleasure to work with. Thank you for including me in her care! Electronically Signed By: Indira Connolly OTR/L Reviewed/agree with student documentation: Therapist: Please Sign and return to therapist, thank you for your referral.
== END 2024-12-15 10:43 | disposition home or self-care (01) ==
LOC: HO.OT 11:32
PROVIDERS: PCP Internal Medicine; Visit Provider Internal Medicine
DX: M25.531 Pain in right wrist (principal)
CPT/HCPCS: 97035; 97110; 97140; 97165; 97535